=== PATIENT | female | born 1990 | race Caucasian/White ===

== ENCOUNTER 2017-10-12 11:28 | Emergency (ER) | payer OTHER, SELFPAY ==
[2017-10-12 11:42] VITALS: BP 119/68; PULSE 101; RESP 20; TEMP 36.6; O2SAT 98; BMI 29.2
--- NOTE | 2017-10-12 11:55 | HMH.EDUTC ---
[facility] [place] Impression: Requires a booster tetanus, Puncture wound Disposition: Home, Self-Care Condition on Discharge: Good Instructions: DI for Puncture Wound Additional Instructions: Keep area clean and dry Watch area for redness, streaks, swelling. warmth or other signs of infection and if seen go straight to ER REturn if needed Follow up with family doctor Time of Disposition: 12:21 Medical Decision Making - Medical Records Medical records reviewed: Yes: I reviewed the patient's medical records. - Phillip Inquiry Pt receiving controlled substance: No Phillip was queried for this patient: No Vital Signs: 10/12/17 11:42 Temperature 97.9 F Temperature Source Temporal Artery Scan Pulse Rate [Right] 101 H Respiratory Rate 20 Blood Pressure [Right Arm] 119/68 Blood Pressure Mean [Right Arm] 85 Blood Pressure Source [Right Arm] Automatic Cuff Blood Pressure Position [Right Arm] Sitting 02 Sat by Pulse Oximetry 98 Oxygen Delivery Method Room Air [facility] [place] - General Stated complaint: 2 punctures to right foot Time Seen by Provider: 10/12/17 12:00 Mode of Arrival: Ambulatory Source of Information: Patient Limitations: No Limitations Description of Symptoms (Recalled from Triage Doc. by RN): STEPPED ON TREVON YESTERDAY, INJURY BOTTOM OF RIGHT FOOT HEENT Symptoms (Recalled from RN notes): No Resp Symptoms (Recalled from RN notes): No Skin Symptoms (Recalled from RN notes): Yes MS Symptoms (Recalled from RN notes): No Functional Status (Recalled from RN notes): N - History of Present Illness Provider Complaint: Patient state that her boyfriend was taking apart pallets yesterday when she accidently stepped on pallet piece that had a staple sticking up and it punctured into the bottom of her right foot State that she immediately cleaned the wound. State that she doesn't remember when her last tetanus shot was so she came in today to have it looked at and get a tetanus shot - Related Data Allergies Allergy/AdvReac Type Severity Reaction Status Date / Time No Known Allergies Allergy Verified 10/12/17 11:47 - Worker's Comp Is this a Worker's Comp case?: No [facility] History I have reviewed the patient's past medical history: Yes - Social History Smoking Status: Current every day smoker Tobacco Type: cigarettes Alcohol Intake: never - Psychiatric History Expresses thoughts of harming self/others: None Suicide Plan Description: No Plan ROS Obtained: No All systems reviewed & no additional complaints - Allergic/Immunologic Comments: two small puncture areas on bottom of foot Physical Exam - General General appearance: alert, in no apparent distress - ENT ENT exam: Present: normal exam, normal oropharynx, mucous membranes moist, TM's normal bilaterally, normal external ear exam - Respiratory Respiratory exam: Present: normal lung sounds bilaterally. Absent: respiratory distress - Cardiovascular Cardiovascular exam: Present: regular rate, normal rhythm. Absent: JVD - Abdominal Exam Abdominal exam: Present: soft, normal bowel sounds. Absent: distention, tenderness, guarding - Extremities Exam Extremities exam: Present: other (Two small puncture like areas noted on bottom of right foot. no redness, no warmth, no streaks no bruising. unsure of how deep staple went into foot) - Neurological Exam Neurological exam: Present: alert, oriented X3
--- NOTE | 2017-10-12 12:06 | ED_ITS ---
[facility] [place] Clinical Impression: Requires a booster tetanus, Puncture wound Disposition: Home, Self-Care Condition on Discharge: Good Instructions: DI for Puncture Wound Additional Instructions: Keep area clean and dry Watch area for redness, streaks, swelling. warmth or other signs of infection and if seen go straight to ER REturn if needed Follow up with family doctor Time of Disposition: 12:21 Medical Decision Making - Medical Records Medical records reviewed: Yes: I reviewed the patient's medical records. - Phillip Inquiry Pt receiving controlled substance: No Phillip was queried for this patient: No Vital Signs: 10/12/17 11:42 Temperature 97.9 F Temperature Source Temporal Artery Scan Pulse Rate [Right] 101 H Respiratory Rate 20 Blood Pressure [Right Arm] 119/68 Blood Pressure Mean [Right Arm] 85 Blood Pressure Source [Right Arm] Automatic Cuff Blood Pressure Position [Right Arm] Sitting 02 Sat by Pulse Oximetry 98 Oxygen Delivery Method Room Air [facility] [place] - General Stated complaint: 2 punctures to right foot Time Seen by Provider: 10/12/17 12:00 Mode of Arrival: Ambulatory Source of Information: Patient Limitations: No Limitations Description of Symptoms (Recalled from Triage Doc. by RN): STEPPED ON TREVON YESTERDAY, INJURY BOTTOM OF RIGHT FOOT HEENT Symptoms (Recalled from RN notes): No Resp Symptoms (Recalled from RN notes): No Skin Symptoms (Recalled from RN notes): Yes MS Symptoms (Recalled from RN notes): No Functional Status (Recalled from RN notes): N - History of Present Illness Provider Complaint: Patient state that her boyfriend was taking apart pallets yesterday when she accidently stepped on pallet piece that had a staple sticking up and it punctured into the bottom of her right foot State that she immediately cleaned the wound. State that she doesn't remember when her last tetanus shot was so she came in today to have it looked at and get a tetanus shot - Related Data Allergies Allergy/AdvReac Type Severity Reaction Status Date / Time No Known Allergies Allergy Verified 10/12/17 11:47 - Worker's Comp Is this a Worker's Comp case?: No [facility] History I have reviewed the patient's past medical history: Yes - Social History Smoking Status: Current every day smoker Tobacco Type: cigarettes Alcohol Intake: never - Psychiatric History Expresses thoughts of harming self/others: None Suicide Plan Description: No Plan ROS Obtained: No All systems reviewed & no additional complaints - Allergic/Immunologic Comments: two small puncture areas on bottom of foot Physical Exam - General General appearance: alert, in no apparent distress - ENT ENT exam: Present: normal exam, normal oropharynx, mucous membranes moist, TM's normal bilaterally, normal external ear exam - Respiratory Respiratory exam: Present: normal lung sounds bilaterally. Absent: respiratory distress - Cardiovascular Cardiovascular exam: Present: regular rate, normal rhythm. Absent: JVD - Abdominal Exam Abdominal exam: Present: soft, normal bowel sounds. Absent: distention, tenderness, guarding - Extremities Exam Extremities exam: Present: other (Two small puncture like areas noted on bottom of right foot. no redness, no warmth, no streaks no bruising. unsure of how deep staple went into foot) - Neurologi
[2017-10-12 12:14] VITALS: BP 119/68; PULSE 100; RESP 20; TEMP 36.6
== END 2017-10-12 12:39 | disposition home or self-care (01) ==
PROVIDERS: Emergency Provider Nurse Practitioner; Family Provider Internal Medicine Adolescent Medicine
DX: S91.311A Laceration without foreign body, right foot, initial encounter (principal); W26.8XXA Contact with other sharp object(s), not elsewhere classified, initial encounter; Y92.019 Unspecified place in single-family (private) house as the place of occurrence of the external cause; Z23 Encounter for immunization; F17.210 Nicotine dependence, cigarettes, uncomplicated
CPT/HCPCS: 90471; 90715; 99201

== ENCOUNTER → 2018-10-15 10:19 | Outpatient (CLI) | payer OTHER, SELFPAY ==
--- NOTE | 2018-10-15 10:30 | XR_ITS ---
XR foot wt bearing LT 3V HISTORY: ITS.REASON: pain ORDERING PHYSICIAN: Leena Nunez DPM PATIENT AGE: 28 years COMPARISON: None FINDINGS: No fracture or dislocation. No lytic or blastic change. There is normal mineralization.. The joint spaces are well-preserved. No significant degenerative/arthritic changes. No erosive changes evident. There are postsurgical changes of the ankle as described in the ankle report IMPRESSION: Negative, no acute finding
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
== END ==
PROVIDERS: Visit Provider Podiatrist
DX: M19.172 Post-traumatic osteoarthritis, left ankle and foot (principal); M19.171 Post-traumatic osteoarthritis, right ankle and foot; M21.70 Unequal limb length (acquired), unspecified site; M25.572 Pain in left ankle and joints of left foot; G89.29 Other chronic pain; Z87.81 Personal history of (healed) traumatic fracture
CPT/HCPCS: 73610; 73630

== ENCOUNTER → 2020-01-22 15:14 | Outpatient (CLI) | payer OTHER, SELFPAY ==
--- NOTE | 2020-01-22 15:14 | MR_ITS ---
PROCEDURE: MR LUMBAR SPINE WO CON CLINICAL INDICATION: back pain LBP. PAIN AND TINGLING DOWN LT LEG. SYMPTOMS [id number]. NO PRIOR. COMPARISON: No exams were available for comparison TECHNIQUE: Standard multiplanar multiecho sequences are performed without contrast. 3-D MIP and myelographic images are also rendered and reviewed FINDINGS: There is normal alignment. The spinal cord ends at the L1 level. The disc spaces are well preserved. No disc herniation canal stenosis or foraminal stenosis. No significant degenerative change. IMPRESSION: Negative MRI of the lumbar spine Dictated by: Talat Glez MD 01/23/2020 11:03 Electronically signed by Talat Glez MD in [place] 01/23/2020 11:03
== END ==
PROVIDERS: PCP Emergency Medicine; Visit Provider Emergency Medicine
DX: M54.6 Pain in thoracic spine (principal); M54.5 Low back pain
CPT/HCPCS: 72148; 76376

== ENCOUNTER → 2020-06-23 17:16 | Outpatient (CLI) | payer OTHER, SELFPAY ==
[2020-06-23 19:02] LABS: Basophils # 0.1 K/mm3 (0-0.2); Basophils % 0.8 % (0.1-2.0); Eosinophils # 0.6 K/mm3 (0.0-0.4); Eosinophils % 3.7 % (0.1-12.0); Hematocrit 45.4 % (37.0-47.0); Hemoglobin 14.7 g/dL (12.2-16.2); Lymphocytes # 3.9 K/mm3 (0.7-4.5); Mean Corpuscular HGB Conc 32.4 g/dL (31.8-35.4); Mean Corpuscular Hemoglobin 31.1 pg (27.0-31.2); Mean Corpuscular Volume 96.1 fl (81-99); Mean Platelet Volume 9.5 fl (7.4-10.4); Monocytes # 0.7 K/mm3 (0.1-1.0); Monocytes % 4.3 % (1.7-9.3); Neutrophils # 9.8 K/mm3 (1.8-7.8); Neutrophils % 65.3 % (37.0-80.0); Platelet Count 386 K/mm3 (142-424); Red Blood Count 4.73 M/mm3 (4.20-5.40); Red Cell Distribution Width 12.7 % (11.5-17.5)
[2020-06-23 19:08] LABS: MANUAL DIFFERENTIAL MANUAL DIFFERENTIAL (MANUAL DIFF)
[2020-06-23 19:23] LABS: Alanine Aminotransferase 21 U/L (12-78); Albumin Level 4.2 g/dl (3.5-5.0); Albumin/Globulin Ratio 1.6 (1.1-1.8); Alkaline Phosphatase 59 U/L (38-126); Anion Gap 11.1 mEq/L (5-15); Aspartate Amino Transferase 25 U/L (14-36); Bilirubin,Total 0.5 mg/dl (0.2-1.3); Blood Urea Nitrogen 10 mg/dl (7-17); Calcium 9.8 mg/dl (8.4-10.2); Carbon Dioxide 24 mmol/L (22.0-30.0); Chloride 106 mmol/L (98-107); Chol/HDL Ratio 6.5 (1-3.5); Cholesterol 275 mg/dl (140-200); Estimated Glomerular Filt Rate 73 ml/min (>60); GFR (African American) 88 ML/MIN (>60); Globulin 2.7 g/dL (1.3-3.2); Glucose 87 mg/dl (74-100); HDL Cholesterol 42 mg/dl (40-60); Potassium 4.1 mmoL/L (3.5-5.1); Sodium 137 mmol/L (136-145); Total Protein,Serum 6.9 g/dl (6.3-8.2); Triglycerides 217 mg/dl (30-150); VLDL Cholesterol 43 mg/dL (0-40)
[2020-06-23 19:34] LABS: Direct LDL Cholesterol 193.92 mg/dL (100-129)
[2020-06-23 19:40] LABS: 25-OH Vitamin D, Total 25.4 ng/mL (30-100)
[2020-06-23 19:42] LABS: T4 (Thyroxine) 9.8 ug/dl (5.53-11.0)
[2020-06-23 19:52] LABS: Eosinophils % 4 % (0-3); Lymphocytes % 32 % (10-50); Monocytes % 1 % (2-9); Neutrophils % 63 % (42-76); Platelet Estimate Normal; RBC Morphology Normal; Total Cells Counted 100
[2020-06-23 19:55] LABS: Thyroid Stimulating Hormone 1.34 uIU/mL (0.465-4.68)
== END ==
PROVIDERS: Visit Provider Physician Assistant
DX: F32.9 Major depressive disorder, single episode, unspecified (principal); L65.9 Nonscarring hair loss, unspecified; R53.83 Other fatigue; E55.9 Vitamin D deficiency, unspecified
CPT/HCPCS: 80053; 80061; 82306; 84436; 84443; 85007; 85025

== ENCOUNTER 2020-10-02 14:10 | Emergency (ER) | payer OTHER, SELFPAY ==
[2020-10-02 14:27] VITALS: BP 134/80; PULSE 98; RESP 16; TEMP 36.9; O2SAT 97; BMI 32.6
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
[2020-10-02 15:13] VITALS: BP 132/77; PULSE 99; RESP 16; TEMP 36.6
[2020-10-02 19:08] LABS: UTC Strep Screen (Rapid) Negative (Negative)
== END 2020-10-02 15:15 | disposition home or self-care (01) ==
PROVIDERS: Emergency Provider Nurse Practitioner Family; PCP Physician Assistant
DX: R59.0 Localized enlarged lymph nodes (principal); R13.10 Dysphagia, unspecified; F17.210 Nicotine dependence, cigarettes, uncomplicated; Z20.822 Contact with and (suspected) exposure to COVID-19
CPT/HCPCS: 87880; 99202; G0463; U0003

== ENCOUNTER → 2020-10-05 17:35 | Outpatient (CLI) | payer OTHER, SELFPAY ==
[2020-10-05 17:59] LABS: Basophils # 0.1 K/mm3 (0-0.2); Basophils % 0.6 % (0.1-2.0); Eosinophils # 0.5 K/mm3 (0.0-0.4); Eosinophils % 3.6 % (0.1-12.0); Hematocrit 42.2 % (37.0-47.0); Lymphocytes # 4.2 K/mm3 (0.7-4.5); Mean Corpuscular HGB Conc 33.1 g/dL (31.8-35.4); Mean Corpuscular Hemoglobin 30.6 pg (27.0-31.2); Mean Corpuscular Volume 92.5 fl (81-99); Mean Platelet Volume 8.8 fl (7.4-10.4); Monocytes # 0.7 K/mm3 (0.1-1.0); Neutrophils % 61.8 % (37.0-80.0); Platelet Count 333 K/mm3 (142-424); Red Blood Count 4.56 M/mm3 (4.20-5.40); Red Cell Distribution Width 12.9 % (11.5-17.5); White Blood Count 14.6 K/mm3 (4.8-10.8)
[2020-10-05 18:05] LABS: HCG Qualitative, Serum Negative (Negative)
[2020-10-05 18:06] LABS: Alanine Aminotransferase 14 U/L (12-78); Albumin Level 4.1 g/dl (3.5-5.0); Albumin/Globulin Ratio 1.3 (1.1-1.8); Alkaline Phosphatase 63 U/L (38-126); Anion Gap 13.6 mEq/L (5-15); Aspartate Amino Transferase 26 U/L (14-36); Bilirubin,Total 0.3 mg/dl (0.2-1.3); Blood Urea Nitrogen 8 mg/dl (7-17); Carbon Dioxide 23 mmol/L (22.0-30.0); Chloride 107 mmol/L (98-107); Chol/HDL Ratio 5.5 (1-3.5); Cholesterol 226 mg/dl (140-200); Estimated Glomerular Filt Rate 97 ml/min (>60); GFR (African American) 117 ML/MIN (>60); Globulin 3.1 g/dL (1.3-3.2); Glucose 88 mg/dl (74-100); HDL Cholesterol 41 mg/dl (40-60); Potassium 4.6 mmoL/L (3.5-5.1); Sodium 139 mmol/L (136-145); Total Protein,Serum 7.2 g/dl (6.3-8.2); Triglycerides 210 mg/dl (30-150); VLDL Cholesterol 42 mg/dL (0-40)
[2020-10-05 18:17] LABS: Direct LDL Cholesterol 150.08 mg/dL (100-129)
[2020-10-05 18:23] LABS: 25-OH Vitamin D, Total 33.8 ng/mL (30-100); HCG,Quantitative < 2 mIU/ml (0-5.42)
[2020-10-05 18:25] LABS: T4 (Thyroxine) 11.7 ug/dl (5.53-11.0)
[2020-10-05 18:39] LABS: Thyroid Stimulating Hormone 1.33 uIU/mL (0.465-4.68)
== END ==
PROVIDERS: Visit Provider Nurse Practitioner Family
DX: Z00.00 Encounter for general adult medical examination without abnormal findings (principal); Z32.00 Encounter for pregnancy test, result unknown
CPT/HCPCS: 36415; 80053; 80061; 82306; 84436; 84443; 84702; 84703; 85025

== ENCOUNTER → 2020-10-11 09:11 | Outpatient (CLI) | payer OTHER, SELFPAY ==
--- NOTE | 2020-10-11 09:11 | US_ITS ---
PROCEDURE: US THYROID CLINICAL INDICATION: Enlarged Thyroid Trouble swallowing. COMPARISON: No exams were available for comparison FINDINGS: Right lobe: 1.4cm x 4.3cm x 1.8cm Left lobe: 1.7cm x 4.2cm x 1.7cm Isthmus: Unremarkable Additional findings: In the right lobe there is a 3 mm isoechoic nodule in the superior pole TR level 2. Small cyst is present in the lower pole at 2 mm. In the left lobe there is a 2 mm cystic area in the mid polar region. IMPRESSION: No dominant thyroid nodule evident. Please see above for detail Dictated by: Talat Glez MD 10/12/2020 10:37 Talat Glez MD in [place] 10/12/2020 10:37
--- NOTE | 2020-10-11 09:11 | FL_ITS ---
PROCEDURE: FL BARIUM SWALLOW CLINICAL INDICATION: Dysphagia COMPARISON: US US THYROID from 10/11/2020 TECHNIQUE: In the upright position the patient was observed to swallow barium in both the AP and lateral view. The cervical esophagus was examined under fluoroscopy with images obtained. The patient was then placed prone in the right anterior oblique position and was observed to swallow barium with Valsalva technique . FLUOROSCOPY TIME: 38 seconds FINDINGS: There was no evidence of aspiration. There was normal peristalsis. No filling defects or mucosal abnormalities. No masses or strictures. IMPRESSION: Negative barium swallow. Dictated by: Talat Glez MD 10/11/2020 10:07 Talat Glez MD in [place] 10/11/2020 10:07
== END ==
PROVIDERS: PCP Physician Assistant; Visit Provider Nurse Practitioner Family
DX: R13.10 Dysphagia, unspecified (principal); R59.0 Localized enlarged lymph nodes
CPT/HCPCS: 74220; 76536

== ENCOUNTER 2020-10-20 20:17 | Emergency (ER) | payer OTHER, SELFPAY ==
--- NOTE | 2020-10-20 20:09 | ECG_ITS ---
APPROVED REPORT Exam: Resting ECG HR:85 bpm ECG Measurements Heart Rate 85 AXES FL 116 P 7 QRSd 76 QRS 95 QT 360 T 50 QTc 428 Conclusion Normal sinus rhythm Rightward axis Borderline ECG Electronically signed by : Sanju Quinn, 10/21/2020 14:57:16
[2020-10-20 20:17] VITALS: BP 131/85; PULSE 91; RESP 14; TEMP 36.7; O2SAT 97; BMI 33.6
--- NOTE | 2020-10-20 20:23 | XR_ITS ---
PROCEDURE: XR CHEST 2V CLINICAL HISTORY: Cp COMPARISON: CR CXR2V XR chest 2V from 07/29/2018 FINDINGS: The cardiomediastinal silhouette and pulmonary vascularity are within normal limits. The lungs are clear without infiltrates, suspicious nodules, or pleural effusions. No acute bony abnormalities. IMPRESSION: No acute findings. Dictated by: Betsy Alexander 10/21/2020 08:57 Betsy Alexander in [place] 10/21/2020 08:57
[2020-10-20 20:46] LABS: Urine Pregnancy, HCG Qual. Negative (Negative)
[2020-10-20 20:50] LABS: Basophils # 0.2 K/mm3 (0-0.2); Basophils % 1.2 % (0.1-2.0); Eosinophils # 0.5 K/mm3 (0.0-0.4); Eosinophils % 3.4 % (0.1-12.0); Hematocrit 45.3 % (37.0-47.0); Hemoglobin 14.9 g/dL (12.2-16.2); Lymphocytes # 5.3 K/mm3 (0.7-4.5); Lymphocytes % 36.3 % (10-50); Mean Corpuscular Volume 94.2 fl (81-99); Mean Platelet Volume 8.2 fl (7.4-10.4); Monocytes # 0.4 K/mm3 (0.1-1.0); Monocytes % 2.7 % (1.7-9.3); Neutrophils # 8.2 K/mm3 (1.8-7.8); Neutrophils % 56.4 % (37.0-80.0); Platelet Count 345 K/mm3 (142-424); Red Blood Count 4.81 M/mm3 (4.20-5.40); Red Cell Distribution Width 12.9 % (11.5-17.5); White Blood Count 14.6 K/mm3 (4.8-10.8)
[2020-10-20 20:54] LABS: Alanine Aminotransferase 14 U/L (12-78); Albumin Level 4.7 g/dl (3.5-5.0); Albumin/Globulin Ratio 1.6 (1.1-1.8); Alkaline Phosphatase 55 U/L (38-126); Anion Gap 11.8 mEq/L (5-15); Aspartate Amino Transferase 24 U/L (14-36); Bilirubin,Total 0.4 mg/dl (0.2-1.3); Blood Urea Nitrogen 9 mg/dl (7-17); Calcium 9.8 mg/dl (8.4-10.2); Carbon Dioxide 27 mmol/L (22.0-30.0); Chloride 105 mmol/L (98-107); Creatinine Clearance Estimated 129 mL/min (50-200); Estimated Glomerular Filt Rate 83 ml/min (>60); GFR (African American) 101 ML/MIN (>60); Glucose 100 mg/dl (74-100); Potassium 3.8 mmoL/L (3.5-5.1); Sodium 140 mmol/L (136-145); Total Protein,Serum 7.7 g/dl (6.3-8.2)
[2020-10-20 20:56] VITALS: BP 119/72; PULSE 74; RESP 17; O2SAT 99
[2020-10-20 21:00] VITALS: BP 114/76; PULSE 74; RESP 16; O2SAT 99
[2020-10-20 21:00] LABS: C-Reactive Protein 3.3 mg/L (0-4)
--- NOTE | 2020-10-20 21:05 | CT_ITS ---
PROCEDURE: CT ABDOMEN PELVIS W CON CLINICAL INDICATION: pain COMPARISON: CT ABDPELW/O CT ABD PELVIS W/O CONTRAST from 02/03/2016 TECHNIQUE: IV Contrast: 75ML Isovue 370 Oral Contrast None Axial images obtained with sagittal and coronal reformats. All CT scans at the facility use one or more dose reduction, viz: automated exposure control, ma/kV adjustment per patient size (including targeted exams where dose is matched to indication, i.e. head), or iterative reconstruction technique. FINDINGS: LOWER THORAX: Minor bibasal atelectasis is noted. ABDOMEN & PELVIS: The liver, spleen, pancreas, and adrenal glands show no acute finding. The gallbladder is unremarkable. No intra or extrahepatic biliary dilation. 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 No evidence of hydronephrosis or hydroureter is. Bilateral adnexal hypodense lesions are noted, likely represents ovarian cysts. The largest of these on the left measures 3.3 centimeters. The uterus is otherwise unremarkable. No intestinal obstruction or free air. No evidence of appendicitis or diverticulitis. No pelvic mass, abnormal fluid collection, or focal inflammatory change of the pelvis. Postsurgical changes with internal fixation of the right acetabulum noted. Otherwise the visualized osseous structures are unremarkable. IMPRESSION: No acute intra-abdominal abnormality. Dictated by: Betsy Alexander 10/21/2020 08:55 Betsy Alexander in [place] 10/21/2020 08:55
[2020-10-20 21:13] LABS: Procalcitonin 0.042 ng/mL (0.0-2.0)
--- NOTE | 2020-10-20 21:13 | HMH.EDCP ---
ED Disposition Clinical Impression: Pancreatitis Qualifiers: Chronicity: acute Pancreatitis type: unspecified pancreatitis type Acute pancreatitis complication: no infection or necrosis Qualified Code(s): K85.90 - Acute pancreatitis without necrosis or infection, unspecified Disposition: Left Against Medical Advice Condition on Discharge: Good Instructions: DI for Pancreatitis Additional Instructions: see pcp in am for follow up Referrals: Shima Lewis PA [Primary Care Provider] - - Critical Care Critical Care Time: No Attestation: On 10/20/20, the high probability of a clinically significant, sudden or life threatening deterioration of the following system(s) required my full and direct attention, intervention and personal management. The time I documented below is in addition to time spent performing reported procedures but includes the following listed in this critical care notation. Medical Decision Making - Medical Records Medical records reviewed: Yes: I reviewed the patient's medical records. - Phillip Inquiry Pt receiving controlled substance: No Vital Signs: 10/20/20 20:17 10/20/20 20:56 10/20/20 21:00 Temperature 98.1 F Temperature Source Oral Pulse Rate 74 74 Pulse Rate [Right] 91 H Respiratory Rate 14 17 16 Blood Pressure 119/72 114/76 Blood Pressure [Right Arm] 131/85 Blood Pressure Mean 82 87 Blood Pressure Mean [Right Arm] 100 02 Sat by Pulse Oximetry 97 99 99 - Lab Data Lab results reviewed: Yes: I reviewed the patient's lab results. Lab Results 10/20/20 20:30: WBC 14.6 H, RBC 4.81, Hgb 14.9, Hct 45.3, MCV 94.2, MCH 31.0, MCHC 33.0, RDW 12.9, Plt Count 345, MPV 8.2, Neut % (Auto) 56.4, Lymph % (Auto) 36.3, Garza % (Auto) 2.7, Eos % (Auto) 3.4, Baso % (Auto) 1.2, Neut # (Auto) 8.2 H, Lymph # (Auto) 5.3 H, Garza # (Auto) 0.4, Eos # (Auto) 0.5 H, Baso # (Auto) 0.2, ESR 15 10/20/20 20:30: Urine HCG, Qual Negative 10/20/20 20:30: Sodium 140, Potassium 3.8, Chloride 105, Carbon Dioxide 27, Anion Gap 11.8, BUN 9, Creatinine 0.80, Estimated Creat Clear 129, Estimated GFR 83, Est GFR ( Amer) 101, Glucose 100, Calcium 9.8, Total Bilirubin 0.4, AST 24, ALT 14, Alkaline Phosphatase 55, Troponin I < 0.01, C-Reactive Protein 3.3, Total Protein 7.7, Albumin 4.7, Globulin 3.0, Albumin/Globulin Ratio 1.6 10/20/20 20:30: Procalcitonin 0.042 10/20/20 20:30: Amylase 127 H, Lipase 666 H Result diagrams: 10/20/20 20:30 10/20/20 20:30 Orders (Tests/Meds): ED MEDICATIONS Generic Name Dose Route Start Last Admin Trade Name Freq PRN Reason Stop Dose Admin Sodium Chloride 1,000 mls @ 999 mls/hr 10/20/20 20:30 10/20/20 20:27 Sod Chlor 0.9% 1000ml Bag IV 10/20/20 21:30 999 mls/hr .Q1H1M MARTIN Administration Sodium Chloride 8 ml 10/20/20 20:37 Sodium Chloride 0.9% 10ml Vial IV 11/19/20 20:36 NEEDED PRN dilute pepcid Discontinued Medications Generic Name Dose Route Start Last Admin Trade Name Freq PRN Reason Stop Dose Admin Aspirin 324 mg 10/20/20 20:25 10/20/20 20:27 Aspirin 81mg Chewable Tablet PO 10/20/20 20:26 324 mg ONCE ONE Administration Famotidine 20 mg 10/20/20 20:37 10/20/20 20:52 Famotidine 20mg/2ml Vial IV 10/20/20 20:38 20 mg ONCE ONE Administration Iopamidol 75 ml 10/20/20 21:42 10/20/20 21:43 Iopamidol-370 (76%);100ml Bottle IV 10/20/20 21:43 75 ml ONCE ONE Administration Ketorolac Tromethamine 30 mg 10/20/20 20:37 10/20/20 20:52 Ketorolac 30mg/Ml Vial IV 10/20/20 20:38 30 mg ONCE ONE Administration Metoclopramide HCl 10 mg 10/20/20 20:37 10/20/20 20:52 Metoclopramide Hcl 10mg/2ml Vial IVP 10/20/20 20:38 10 mg ONCE ONE Administration Sodium Chloride 10 ml 10/20/20 21:42 10/20/20 21:43 Sodium Chloride 0.9% 10ml Syr (Rad Only) IV 10/20/20 21:43 10 ml ONCE ONE Administration ORDERS Category Date Time Status CT abdomen pelvis w con Stat Cat Scan 10/20/
[2020-10-20 21:16] LABS: Amylase 127 U/L (30-110)
[2020-10-20 21:21] LABS: Troponin I < 0.01 ng/ml (0.00-0.034)
[2020-10-20 21:23] LABS: Lipase 666 U/L (23-300)
[2020-10-20 21:24] LABS: Erythrocyte Sedimentation Rate 15 mm/hr (0-20)
[2020-10-20 21:55] LABS: Microscopic, Urine URINE MICROSCOPIC (MICROSCOPIC)
[2020-10-20 21:56] LABS: Appearance,Urine CLEAR (Clear); Bilirubin,Urine Negative (Negative); Blood, Urine TRACE-I (Negative); Color,Urine YELLOW (Yellow); Glucose,Urine (UA) Negative (Negative); Ketones,Urine Negative (Negative); Leukocyte Esterase,Urine Negative (Negative); Nitrate,Urine Negative (Negative); PH,Urine 5.5 (5.0-8.5); Protein,Urine Negative (Negative); Specific Gravity, Urine >= 1.030 (1.005-1.030); Urobilinogen,Urine 0.2 EU/dl (0.2)
[2020-10-20 21:59] VITALS: BP 114/76; PULSE 75; RESP 14; TEMP 36.7; O2SAT 97
[2020-10-20 21:59] LABS: Lactic Acid 0.7 mmol/L (0.7-2.1)
[2020-10-20 22:04] LABS: Bacteria,Urine 1+ /lpf; Mucus,Urine 1+ /lpf
== END 2020-10-20 22:01 | disposition left against medical advice (07) ==
PROVIDERS: Emergency Provider Emergency Medicine; PCP Physician Assistant
DX: K85.90 Acute pancreatitis without necrosis or infection, unspecified (principal); U07.1 COVID-19; F41.9 Anxiety disorder, unspecified; E78.5 Hyperlipidemia, unspecified; F17.210 Nicotine dependence, cigarettes, uncomplicated; Z79.899 Other long term (current) drug therapy
CPT/HCPCS: 71046; 74177; 80053; 81001; 81025; 82150; 83605; 83690; 84145; 84484; 85025; 85651; 86140; 87040; 87077; 87186; 93005; 96375; 99283; Q9967; U0003

== ENCOUNTER → 2020-11-01 08:14 | Outpatient (CLI) | payer OTHER, SELFPAY ==
--- NOTE | 2020-11-01 08:14 | US_ITS ---
PROCEDURE: US GALLBLADDER CLINICAL INDICATION: upper abd/chest pain COMPARISON: No exams were available for comparison FINDINGS: Pancreas: Unremarkable/Not well seen Liver: Unremarkable. There is appropriate direction of blood flow within a non dilated portal vein. Right kidney: Unremarkable appearing. No hydronephrosis. Gallbladder: No stones are evident. There is no gallbladder wall thickening. Common duct is normal in diameter. IMPRESSION: Negative gallbladder ultrasound. No stones evident. Dictated by: Talat Glez MD 11/01/2020 13:24 Taalt Glez MD in [place] 11/01/2020 13:24
== END ==
PROVIDERS: PCP Physician Assistant; Visit Provider Physician Assistant
DX: R10.10 Upper abdominal pain, unspecified (principal); K85.90 Acute pancreatitis without necrosis or infection, unspecified
CPT/HCPCS: 76705

== ENCOUNTER → 2020-11-10 11:21 | Outpatient (CLI) | payer OTHER, SELFPAY ==
[2020-11-11 08:16] LABS: Thyroid Peroxidase Antibodies 10 IU/mL (0-34)
[2020-11-11 15:18] LABS: Triiodothyronine (T3) Free 3.5 pg/mL (2.0-4.4)
[2020-11-12 11:06] LABS: Thyroid Stimulating Immunoglob <0.10 IU/L (0.00-0.55)
== END ==
PROVIDERS: Visit Provider Physician Assistant
DX: E01.0 Iodine-deficiency related diffuse (endemic) goiter (principal)
CPT/HCPCS: 36415; 84445; 84481; 86376

== ENCOUNTER → 2020-11-12 09:28 | Outpatient (CLI) | payer OTHER, SELFPAY ==
--- NOTE | 2020-11-12 09:29 | CA_ITS ---
APPROVED REPORT EXAM: Comprehensive 2D, Doppler, and color-flow Echocardiogram Grinding Machine Operator: Lola Joseph CRT Ht: 5 ft 1 in Wt: 181lbs BSA: 1.81 BP: 130/86 mmHg Indications: Chest Pain, Shortness of Breath, Peripheral Edema, Hyperlipidemia, Smoker 2D Dimensions LVOT 2.05 cm (M/F) 1.5-2.5 LA Volume 32.60 mL LA Volume Index 18.00 mL/m2 (M/F) 16-34 M-Mode Dimensions RVDd 1.90 cm (0.9-2.6) LA Diam 3.04 cm (1.9-4.0) LVDd 4.93 cm (3.5-5.7) Ao Diam 3.47 cm (2.0-3.7) LVDs 2.78 cm (3.5-5.7) IVSd 0.90 cm (0.6-1.1) PWd 0.50 cm (0.6-1.1) EF (Teich) 74.70% FS 43.60% EDV (Teich) 114.40 mL TAPSE 2.01 (<1.7) ESV (Teich) 29.00 mL LV Diastology E Decel Time 200.00 (160-240 msec) E/A Ratio 1.28 MED E' 11.30 (< 7 cm/sec) MED A' 10.70 cm/s E'/MED E' Ratio 8.21 (>14) LAT E' 15.60 (<10 cm/sec) LAT A' 14.20 cm/s E/LAT E' Ratio 5.95 (>14) Aortic Valve AO Peak GR. 6.40 mmHg Mitral Valve MV E Max Liam. 93.00 (40-130 cm/s) MV A Velocity 73.00 (40-130 cm/s) E/A Ratio 1.28 MV Decel. Time 200.00 (160-240 ms) MV PHT 59.00 ms Pulmonary Valve PV Peak Velocity 62.00 (50-150 cm/s) Tricuspid Valve TR P. Velocity 190.00 cm/s RAP Estimate 10.00 mmHg RVSP 24.40 mmHg Left Ventricle Normal left ventricular size, preserved left ventricular systolic function, visually estimated ejection fraction 55% with no regional wall motion abnormality, diastolic parameters are within normal range. Right Ventricle Right atrium and right ventricle is normal size and contractility. Aortic Valve Aortic valve is grossly normal, there is no aortic stenosis or aortic insufficiency. Mitral Valve Mitral valve grossly normal, there is trace mitral regurgitation. Tricuspid Valve Tricuspid grossly normal, there is trace tricuspid regurgitation, tricuspid regurgitation jet velocity is inadequate for calculation of the right ventricular systolic pressure. Pulmonic Valve Pulmonic valve is not well visualized. Great Vessels Aortic root is normal size. Inferior vena cava is normal size with normal inspiratory collapse. Pericardium No significant pericardial effusion noted. Conclusion 1. Normal left ventricular size, preserved left ventricular systolic function, visually estimated ejection fraction 55% with no regional wall motion abnormality, diastolic parameters are within normal range. 2. Trace mitral and tricuspid regurgitation. 3. No significant pericardial effusion noted. Electronically signed by : Rashid Coe, 11/12/2020 13:07:00
== END ==
PROVIDERS: PCP Physician Assistant; Visit Provider Internal Medicine Cardiovascular Disease
DX: R07.9 Chest pain, unspecified (principal); R06.00 Dyspnea, unspecified; R42 Dizziness and giddiness; R94.31 Abnormal electrocardiogram [ECG] [EKG]; K30 Functional dyspepsia; R40.0 Somnolence; R53.83 Other fatigue
CPT/HCPCS: 93306

== ENCOUNTER 2021-01-07 18:33 | Emergency (ER) | payer OTHER, SELFPAY ==
[2021-01-07 19:02] VITALS: BP 104/72; PULSE 111; RESP 24; TEMP 37.7; O2SAT 99; BMI 36.3
[2021-01-07 19:09] VITALS: BMI 36.3
--- NOTE | 2021-01-07 19:10 | CT_ITS ---
PROCEDURE INFORMATION: Exam: CT Abdomen And Pelvis With Contrast Exam date and time: 01/07/2021 7:10 PM Age: 30 years old Clinical indication: Abdominal pain; Acute; Patient HX: Patient had hsg procedure yesterday---. Pain at top of pelvis; Additional info: Abd pain TECHNIQUE: Imaging protocol: Computed tomography of the abdomen and pelvis with contrast. Radiation optimization: All CT scans at this facility use at least one of these dose optimization techniques: automated exposure control; mA and/or kV adjustment per patient size (includes targeted exams where dose is matched to clinical indication); or iterative reconstruction. Contrast material: ISOVUE; Contrast volume: 75 ml; Contrast route: IV; COMPARISON: CT ABDOMEN PELVIS W CON 10/20/2020 9:22 PM FINDINGS: Liver: Normal. Gallbladder and bile ducts: Normal. Pancreas: Normal. Spleen: Normal. Adrenal glands: Normal. No mass. Kidneys and ureters: Normal. Stomach and bowel: Normal. Appendix: No evidence of appendicitis. Intraperitoneal space: Small amount of pelvic free fluid, likely physiologic. Vasculature: Unremarkable. No abdominal aortic aneurysm. Lymph nodes: Unremarkable. No enlarged lymph nodes. Urinary bladder: Unremarkable as visualized. Reproductive: Radiodense material within the fallopian tubes bilaterally, likely secondary to recent hysterosalpingogram. Bones/joints: No acute abnormality. Soft tissues: Surgical changes of prior right ilium and acetabulum repair. Small fat containing umbilical hernia. IMPRESSION: No acute abdominal or pelvic abnormality.
[2021-01-07 19:22] LABS: Basophils # 0.1 K/mm3 (0-0.2); Basophils % 0.5 % (0.1-2.0); Eosinophils # 0.5 K/mm3 (0.0-0.4); Eosinophils % 1.9 % (0.1-12.0); Hematocrit 39.6 % (37.0-47.0); Hemoglobin 13.2 g/dL (12.2-16.2); Lymphocytes # 4.5 K/mm3 (0.7-4.5); Mean Corpuscular HGB Conc 33.4 g/dL (31.8-35.4); Mean Corpuscular Hemoglobin 30.8 pg (27.0-31.2); Mean Corpuscular Volume 92.2 fl (81-99); Monocytes % 4.4 % (1.7-9.3); Neutrophils # 17.6 K/mm3 (1.8-7.8); Neutrophils % 74.2 % (37.0-80.0); Platelet Count 386 K/mm3 (142-424); Red Blood Count 4.29 M/mm3 (4.20-5.40); Red Cell Distribution Width 12.4 % (11.5-17.5); White Blood Count 23.8 K/mm3 (4.8-10.8)
[2021-01-07 19:23] LABS: Alanine Aminotransferase 18 U/L (12-78); Albumin Level 4.2 g/dl (3.5-5.0); Albumin/Globulin Ratio 1.5 (1.1-1.8); Alkaline Phosphatase 64 U/L (38-126); Anion Gap 12.1 mEq/L (5-15); Aspartate Amino Transferase 26 U/L (14-36); Bilirubin,Total 0.5 mg/dl (0.2-1.3); Blood Urea Nitrogen 6 mg/dl (7-17); Calcium 9.3 mg/dl (8.4-10.2); Carbon Dioxide 24 mmol/L (22.0-30.0); Chloride 106 mmol/L (98-107); Creatinine Clearance Estimated 163 mL/min (50-200); Estimated Glomerular Filt Rate 83 ml/min (>60); GFR (African American) 101 ML/MIN (>60); Globulin 2.8 g/dL (1.3-3.2); Glucose 91 mg/dl (74-100); Potassium 3.1 mmoL/L (3.5-5.1); Sodium 139 mmol/L (136-145)
[2021-01-07 19:28] LABS: C-Reactive Protein 23.7 mg/L (0-4)
[2021-01-07 19:30] VITALS: BP 95/57; PULSE 92; O2SAT 99
[2021-01-07 19:31] LABS: MANUAL DIFFERENTIAL MANUAL DIFFERENTIAL (MANUAL DIFF)
[2021-01-07 19:48] LABS: Eosinophils % 1 % (0-3); Lymphocytes % 22 % (10-50); Monocytes % 5 % (2-9); Neutrophils % 71 % (42-76); Total Cells Counted 100
[2021-01-07 19:49] LABS: Platelet Estimate Normal; RBC Morphology Normal
[2021-01-07 19:51] LABS: HCG Qualitative, Serum Negative (Negative)
[2021-01-07 20:08] LABS: Amylase 62 U/L (30-110); Lipase 50 U/L (23-300)
[2021-01-07 20:10] LABS: Lactic Acid 1.2 mmol/L (0.7-2.1)
[2021-01-07 20:26] LABS: Erythrocyte Sedimentation Rate 25 mm/hr (0-20)
[2021-01-07 20:30] VITALS: BP 109/65; PULSE 100; O2SAT 99
[2021-01-07 20:37] LABS: Microscopic, Urine URINE MICROSCOPIC (MICROSCOPIC)
[2021-01-07 20:43] LABS: Appearance,Urine SL CLOUDY (Clear); Bilirubin,Urine Negative (Negative); Blood, Urine 3+ (Negative); Color,Urine YELLOW (Yellow); Glucose,Urine (UA) Negative (Negative); Ketones,Urine Negative (Negative); Leukocyte Esterase,Urine 1+ (Negative); Nitrate,Urine POSITIVE (Negative); PH,Urine 5.5 (5.0-8.5); Protein,Urine Negative (Negative); Specific Gravity, Urine 1.015 (1.005-1.030); Urobilinogen,Urine 0.2 EU/dl (0.2)
[2021-01-07 20:50] LABS: Bacteria,Urine 2+ /lpf; WBC,Urine 20-50 #/hpf (0-3)
[2021-01-07 21:18] VITALS: BP 102/63; PULSE 100; O2SAT 97
--- NOTE | 2021-01-07 21:40 | HMH.EDNVD ---
ED Disposition Clinical Impression: Pelvic pain, SIRS (systemic inflammatory response syndrome) UTI (urinary tract infection) Qualifiers: Urinary tract infection type: site unspecified Hematuria presence: without hematuria Qualified Code(s): N39.0 - Urinary tract infection, site not specified Disposition: Home, Self-Care Condition on Discharge: Good Instructions: DI for Urinary Tract Infection (UTI) Additional Instructions: use meds and see pcp for follow up Prescriptions: levoFLOXacin [Levaquin 500mg tab] 500 mg PO DAILY #7 tab Prescription Printed Referrals: Sunday Jules MD [Primary Care Provider] - - Critical Care Critical Care Time: No Attestation: On 01/07/21, the high probability of a clinically significant, sudden or life threatening deterioration of the following system(s) required my full and direct attention, intervention and personal management. The time I documented below is in addition to time spent performing reported procedures but includes the following listed in this critical care notation. Medical Decision Making - Medical Records Medical records reviewed: Yes: I reviewed the patient's medical records. - Phillpi Inquiry Pt receiving controlled substance: No Vital Signs: 01/07/21 19:02 01/07/21 19:30 01/07/21 20:30 Temperature 99.9 F H Temperature Source Oral Pulse Rate 92 H 100 H Pulse Rate [Right] 111 H Respiratory Rate 24 Blood Pressure 95/57 L 109/65 L Blood Pressure [Right Arm] 104/72 L Blood Pressure Mean 69 75 Blood Pressure Mean [Right Arm] 82 Blood Pressure Source [Right Arm] Automatic Cuff Blood Pressure Position [Right Arm] Sitting 02 Sat by Pulse Oximetry 99 99 99 01/07/21 21:18 Temperature Temperature Source Pulse Rate 100 H Pulse Rate [Right] Respiratory Rate Blood Pressure 102/63 L Blood Pressure [Right Arm] Blood Pressure Mean 72 Blood Pressure Mean [Right Arm] Blood Pressure Source [Right Arm] Blood Pressure Position [Right Arm] 02 Sat by Pulse Oximetry 97 - Lab Data Lab results reviewed: Yes: I reviewed the patient's lab results. Lab Results 01/07/21 18:45: WBC 23.8 H*, RBC 4.29, Hgb 13.2, Hct 39.6, MCV 92.2, MCH 30.8, MCHC 33.4, RDW 12.4, Plt Count 386, MPV 8.0, Neut % (Auto) 74.2, Lymph % (Auto) 19.0, [place] % (Auto) 4.4, Eos % (Auto) 1.9, Baso % (Auto) 0.5, Neut # (Auto) 17.6 H, Lymph # (Auto) 4.5, [place] # (Auto) 1.0, Eos # (Auto) 0.5 H, Baso # (Auto) 0.1, Total Counted 100, Neutrophils % (Manual) 71, Lymphocytes % (Manual) 22, Atypical Lymphs % 1.0, Monocytes % (Manual) 5, Eosinophils % (Manual) 1, Platelet Estimate Normal, RBC Morphology Normal, ESR 25 H 01/07/21 18:45: Sodium 139, Potassium 3.1 L, Chloride 106, Carbon Dioxide 24, Anion Gap 12.1, BUN 6 L, Creatinine 0.80, Estimated Creat Clear 163, Estimated GFR 83, Est GFR ( Amer) 101, Glucose 91, Calcium 9.3, Total Bilirubin 0.5, AST 26, ALT 18, Alkaline Phosphatase 64, C-Reactive Protein 23.7 H, Total Protein 7.0, Albumin 4.2, Globulin 2.8, Albumin/Globulin Ratio 1.5, Procalcitonin 0.050 01/07/21 18:45: Serum HCG, Qual Negative 01/07/21 18:45: Amylase 62, Lipase 50 01/07/21 19:50: Lactate 1.2 01/07/21 20:33: Urine Color Yellow, Urine Appearance Sl cloudy, Urine pH 5.5, Ur Specific [place] 1.015, Urine Protein Negative, Urine Glucose (UA) Negative, Urine Ketones Negative, Urine Blood 3+, Urine Nitrate Positive, Urine Bilirubin Negative, Urine Urobilinogen 0.2, Ur Leukocyte Esterase 1+ A, Urine RBC 5-10, Urine WBC 20-50, Ur Squamous Epith Cells 3-5, Urine Bacteria 2+ Result diagrams: 01/07/21 18:45 01/07/21 18:45 Orders (Tests/Meds): ED MEDICATIONS Generic Name Dose Route Start Last Admin Trade Name Freq PRN Reason Stop Dose Admin Sodium Chloride 1,000 mls @ 999 mls/hr 01/07/21 20:00 01/07/21 19:56 Sod Chlor 0.9% 1000ml Bag IV 01/07/21 21:00 999 mls/hr .Q1H1M MARTIN Administration Ceftriaxone Sodium 1 gm/ 50 mls @ 100 mls/hr 01/07/21 21:45
--- NOTE | 2021-01-07 22:07 | PC.NURSE ---
Dhara on phone with Dr Estrada OB @ this time
[2021-01-07 22:45] VITALS: BP 110/67; PULSE 89; RESP 16; TEMP 37.1; O2SAT 97
== END 2021-01-07 22:46 | disposition home or self-care (01) ==
PROVIDERS: Emergency Medicine; Emergency Provider Emergency Medicine; PCP Emergency Medicine
DX: N30.00 Acute cystitis without hematuria (principal); R65.10 Systemic inflammatory response syndrome (SIRS) of non-infectious origin without acute organ dysfunction; E78.5 Hyperlipidemia, unspecified; Z79.899 Other long term (current) drug therapy
CPT/HCPCS: 74177; 80053; 81001; 82150; 83605; 83690; 84145; 84703; 85007; 85025; 85651; 86140; 87040; 87086; 87088; 87186; 96365; 96366; 96375; 99283; J2405; Q9967

== ENCOUNTER → 2021-04-26 19:16 | Outpatient (CLI) | payer OTHER, SELFPAY | PROVIDERS: Visit Provider Nurse Practitioner Family | DX: Z20.822 Contact with and (suspected) exposure to COVID-19 (principal) | CPT/HCPCS: C9803; U0003; U0005 ==

== ENCOUNTER 2021-05-01 16:34 | Emergency (ER) | payer OTHER, SELFPAY ==
[2021-05-01 16:47] VITALS: BP 128/79; PULSE 89; RESP 15; TEMP 36.6; O2SAT 98; BMI 35.1
[2021-05-01 16:59] LABS: Apearance,Urine Cloudy (Clear); Color,Urine Dark Yellow (Yellow); Glucose,Urine (UA) Negative (Negative); Protein,Urine Negative (Negative); Specific Gravity, Urine 1.025 (1.005-1.030)
[2021-05-01 17:00] LABS: Bilirubin,Urine Negative (Negative); Blood, Urine 1+ (Negative); Ketones,Urine Negative (Negative); UTC Leukocyte Esterase,Urine Trace (Negative); UTC Nitrate,Urine Positive (Negative); Urobilinogen,Urine 0.2 EU/dl (0.2)
--- NOTE | 2021-05-01 17:05 | HMH.EDUTC ---
[facility] Disposition Clinical Impression: UTI (urinary tract infection) Qualifiers: Urinary tract infection type: site unspecified Hematuria presence: with hematuria Qualified Code(s): N39.0 - Urinary tract infection, site not specified Disposition: Home, Self-Care Condition on Discharge: Good Instructions: Urinary Tract Infection, DI for Urinary Tract Infection (UTI) Additional Instructions: Drink plenty of fluids. Take tylenol or ibuprofen for pain or fever. Take the medications as directed. Follow up with your regular doctor. GO TO THE ER FOR ANY WORSENING SYMPTOMS Throw your tooth brush away and get a new one. The pyridium will make your urine turn orange, this is an expected side effect. It will stain your clothes if it comes into contact with them. Prescriptions: Sulfamethoxazole/Trimethoprim [Bactrim DS tablet] 1 each PO BID 7 Days #14 tab Transmission Status: Received by [id number] Phenazopyridine HCl [Pyridium 200mg Tablet] 200 pow PO TID #6 tab Transmission Status: Received by [id number] Referrals: Shima Lewis PA [Primary Care Provider] - Forms: Work/School Release Time of Disposition: 17:11 Medical Decision Making - Medical Records Medical records reviewed: No: I reviewed the patient's medical records. - Phillip Inquiry Pt receiving controlled substance: No Vital Signs: 05/01/21 16:47 05/01/21 17:14 Temperature 97.8 F 97.8 F Temperature Source Oral Pulse Rate 89 Pulse Rate [Left] 89 Respiratory Rate 15 19 Blood Pressure 128/79 Blood Pressure [Right Arm] 128/79 Blood Pressure Mean [Right Arm] 95 02 Sat by Pulse Oximetry 98 - Lab Data Lab results reviewed: Yes: I reviewed the patient's lab results. Lab Results 05/01/21 16:58: Urine Color Dark yellow, Urine Appearance Cloudy, Urine pH 6.0, Ur Specific [place] 1.025, Urine Protein Negative, Urine Glucose (UA) Negative, Urine Ketones Negative, Urine Blood 1+, Urine Nitrate Positive A, Urine Bilirubin Negative, Urine Urobilinogen 0.2, Ur Leukocyte Esterase Trace Orders (Tests/Meds): ORDERS Category Date Time Status Urine Culture Stat Micro 05/01/21 16:47 Received [facility] HPI - General Stated complaint: ear and blader infection Time Seen by Provider: 05/01/21 17:05 Mode of Arrival: Ambulatory Source of Information: Patient Limitations: No Limitations Description of Symptoms (Recalled from Triage Doc. by RN): pt c/o burning with urination x1 week. pt c/o ear pain x2 days HEENT Symptoms (Recalled from RN notes): Yes (ear pain) Resp Symptoms (Recalled from RN notes): No Skin Symptoms (Recalled from RN notes): No MS Symptoms (Recalled from RN notes): No Functional Status (Recalled from RN notes): na - History of Present Illness Provider Complaint: She states that for the past 2 days she has had burning with urination and low back pain. She was running a fever around 5 days ago, but she thinks that it was something differnt, because that went away. She does occasionally get uti's. - Related Data Previous Rx's Medication Instructions Recorded Phenazopyridine HCl [Pyridium 200 pow PO TID #6 tab 05/01/21 200mg Tablet] Sulfamethoxazole/Trimethoprim 1 each PO BID 7 Days #14 tab 05/01/21 [Bactrim DS tablet] Allergies Allergy/AdvReac Type Severity Reaction Status Date / Time No Known Allergies Allergy Verified 04/26/21 17:43 - Worker's Comp Is this a Worker's Comp case?: No [facility] History - Hepatitis A Screen Drug use history?: No High risk sexual behaviors?: No History of sexually transmitted infection?: No Currently employed?: No Childcare worker?: No Do you have indoor plumbing?: Yes Do you have electricity?: Yes Attestation statement:: This patient has been screened for Hepatitis A risk factors. I have reviewed the patient's past medical history: Yes Medical History: Reports:: Hyperlipidemia Denies:: Cancer, Diabetes Mellitus
[2021-05-01 17:14] VITALS: BP 128/79; PULSE 89; RESP 19; TEMP 36.6
== END 2021-05-01 17:16 | disposition home or self-care (01) ==
PROVIDERS: Emergency Provider Nurse Practitioner Family; PCP Physician Assistant
DX: N39.0 Urinary tract infection, site not specified (principal)
CPT/HCPCS: 81003; 87086; 87088; 87186; 99202; G0463

== ENCOUNTER → 2021-07-15 08:05 | Outpatient (CLI) | payer OTHER, SELFPAY ==
--- NOTE | 2021-07-15 08:06 | MM_ITS ---
PROCEDURE INFORMATION: Exam: MG Bilateral Screening 3D Mammography Exam date and time: 07/15/2021 8:06 AM Age: 31 years old Clinical indication: Screening.Positive family history of breast cancer: Grandmother. Mammogram prior to breast reduction TECHNIQUE: Imaging protocol: Bilateral screening tomosynthesis and 2D mammography including computer-aided detection (CAD) when performed. COMPARISON: No relevant prior studies available. FINDINGS: MAMMOGRAPHY: Breast composition: The breast tissue is composed of scattered areas of fibroglandular density. Mass: None. Architectural distortion: None. Calcifications: No suspicious calcifications. Asymmetric density: None. Skin thickening: None. Axillary adenopathy: None. IMPRESSION: No mammographic evidence of malignancy. Annual bilateral mammographic screening is recommended to commence at the age of 40 unless otherwise clinically indicated. ASSESSMENT: BI-RADS Category 1: Negative
== END ==
PROVIDERS: PCP Physician Assistant; Visit Provider Physician Assistant
DX: Z12.31 Encounter for screening mammogram for malignant neoplasm of breast (principal)
CPT/HCPCS: 77063; 77067

== ENCOUNTER → 2021-07-20 17:29 | Outpatient (CLI) | payer OTHER, SELFPAY ==
[2021-07-20 20:30] LABS: Benzodiazepines Screen,Urine Negative ng/ml (<200)
[2021-07-20 20:31] LABS: Amphetamine/Metha Screen,Urine Negative ng/ml (<1000); Barbiturates Screen,Urine Negative ng/ml (<200)
[2021-07-20 20:32] LABS: Cannabinoid Screen,Urine Negative ng/ml (<50)
[2021-07-20 20:33] LABS: Cocaine Screen,Urine Negative ng/ml (<300); Methadone Screen,Urine Negative ng/ml (<300)
[2021-07-20 20:34] LABS: Opiate Screen,Urine Negative ng/ml (<300); Phencyclidine Screen,Urine Negative ng/ml (<25)
== END ==
PROVIDERS: Visit Provider Nurse Practitioner Family
DX: M54.9 Dorsalgia, unspecified (principal)
CPT/HCPCS: 80305

== ENCOUNTER 2021-07-24 15:57 | Emergency (ER) | payer OTHER, SELFPAY ==
[2021-07-24 18:22] VITALS: BP 123/83; PULSE 112; RESP 16; TEMP 37; O2SAT 100; BMI 35.1
[2021-07-24 18:27] LABS: Apearance,Urine Turbid (Clear); Bilirubin,Urine Negative (Negative); Blood, Urine 4+ (Negative); Color,Urine Dark Yellow (Yellow); Glucose,Urine (UA) Negative (Negative); Ketones,Urine Negative (Negative); Protein,Urine 2+ (Negative); Specific Gravity, Urine 1.025 (1.005-1.030); UTC Leukocyte Esterase,Urine 1+ (Negative); UTC Nitrate,Urine Positive (Negative); Urobilinogen,Urine 0.2 EU/dl (0.2)
[2021-07-24 18:37] VITALS: BP 123/83; PULSE 112; RESP 16; TEMP 37
--- NOTE | 2021-07-24 18:53 | HMH.EDUTC ---
[facility] [place] Clinical Impression: UTI (urinary tract infection) Qualifiers: Urinary tract infection type: site unspecified Hematuria presence: with hematuria Qualified Code(s): N39.0 - Urinary tract infection, site not specified Disposition: Home, Self-Care Condition on Discharge: Good Instructions: DI for Urinary Tract Infection (UTI) Additional Instructions: Drink plenty of fluids. Take tylenol or ibuprofen for pain or fever. Take the medications as directed. Follow up with your regular doctor. GO TO THE ER FOR ANY WORSENING SYMPTOMS The pyridium will make your urine turn orange, this is an expected side effect. It will stain your clothes if it comes into contact with them. Prescriptions: Ondansetron [Zofran 4mg ODT] 4 mg PO Q8HP PRN #20 tab PRN Reason: Nausea Transmission Status: [facility] Ciprofloxacin HCl [Cipro 500mg Tab] 500 mg PO BID 7 Days #14 tab Transmission Status: [id number] Phenazopyridine HCl [Pyridium 200mg Tablet] 200 pow PO TID #6 tab Transmission Status: [facility] Referrals: Shima Lewis PA [Primary Care Provider] - Forms: Work/School Release Time of Disposition: 19:13 Medical Decision Making - Medical Records Medical records reviewed: No: I reviewed the patient's medical records. - Phillip Inquiry Pt receiving controlled substance: No Vital Signs: 07/24/21 18:22 07/24/21 18:37 Temperature 98.6 F 98.6 F Temperature Source Oral Pulse Rate 112 H Pulse Rate [Left] 112 H Respiratory Rate 16 16 Blood Pressure 123/83 Blood Pressure [Right Arm] 123/83 Blood Pressure Mean [Right Arm] 96 02 Sat by Pulse Oximetry 100 - Lab Data Lab results reviewed: Yes: I reviewed the patient's lab results. Lab Results 07/24/21 18:22: Urine Color Dark yellow, Urine Appearance Turbid, Urine pH 6.0, Ur Specific [place] 1.025, Urine Protein 2+, Urine Glucose (UA) Negative, Urine Ketones Negative, Urine Blood 4+, Urine Nitrate Positive A, Urine Bilirubin Negative, Urine Urobilinogen 0.2, Ur Leukocyte Esterase 1+ A Orders (Tests/Meds): ED MEDICATIONS Discontinued Medications Generic Name Dose Route Start Last Admin Trade Name Nano PRN Reason Stop Dose Admin Levofloxacin 500 mg 07/24/21 19:21 07/24/21 19:26 Levofloxacin 500mg Tab PO 07/24/21 19:22 500 mg ONCE ONE Administration Phenazopyridine HCl 200 mg 07/24/21 19:23 07/24/21 19:26 Phenazopyridine 200mg Tablet PO 07/24/21 19:24 200 mg ONCE ONE Administration ORDERS Category Date Time Status Urine Culture Stat Micro 07/24/21 18:07 Received [facility] [place] - General Stated complaint: Bladder infection Time Seen by Provider: 07/24/21 18:53 Mode of Arrival: Ambulatory Source of Information: Patient Limitations: No Limitations Description of Symptoms (Recalled from Triage Doc. by RN): pt c/o a fever, foul smelling urine, lower abd pain and flank pain. x2 days. pt believes she has a UTI HEENT Symptoms (Recalled from RN notes): No Resp Symptoms (Recalled from RN notes): No Skin Symptoms (Recalled from RN notes): No MS Symptoms (Recalled from RN notes): No Functional Status (Recalled from RN notes): wnl - History of Present Illness Provider Complaint: She has been having dysuria and low back pain for the past 3 days. She gets utis at times. - Related Data Previous Rx's Medication Instructions Recorded naproxen 375 mg tablet 375 mg PO BID PRN #30 tab 07/20/21 phentermine 37.5 mg tablet 37.5 mg PO DAILY #30 tab 07/20/21 Ciprofloxacin HCl [Cipro 500mg 500 mg PO BID 7 Days #14 tab 07/24/21 Tab] Ondansetron [Zofran 4mg ODT] 4 mg PO Q8HP PRN #20 tab 07/24/21 Phenazopyridine HCl [Pyridium 200 pow PO TID #6 tab 07/24/21 200mg Tablet] Allergies Allergy/AdvReac Type Severity Reaction Status Date / Time No Known Allergies Allergy Verified 07/20/21 13:59 - Wo
== END 2021-07-24 19:29 | disposition home or self-care (01) ==
PROVIDERS: Emergency Provider Nurse Practitioner Family; PCP Physician Assistant
DX: N30.00 Acute cystitis without hematuria (principal); E78.5 Hyperlipidemia, unspecified
CPT/HCPCS: 81003; 87086; 87088; 87186; 99202; G0463

== ENCOUNTER → 2021-10-17 16:00 | Outpatient (CLI) | payer OTHER, SELFPAY ==
[2021-10-17 18:45] LABS: Chloride 105 mmol/L (98-107)
[2021-10-17 18:47] LABS: Basophils # 0.2 K/mm3 (0-0.2); Basophils % 1.2 % (0.1-2.0); Eosinophils # 0.6 K/mm3 (0.0-0.4); Eosinophils % 3.9 % (0.1-12.0); Hematocrit 41.5 % (37.0-47.0); Hemoglobin 13.9 g/dL (12.2-16.2); Lymphocytes # 4.5 K/mm3 (0.7-4.5); Lymphocytes % 30.2 % (10-50); Mean Corpuscular HGB Conc 33.6 g/dL (31.8-35.4); Mean Corpuscular Hemoglobin 31.4 pg (27.0-31.2); Mean Corpuscular Volume 93.5 fl (81-99); Mean Platelet Volume 9.5 fl (7.4-10.4); Monocytes # 0.7 K/mm3 (0.1-1.0); Monocytes % 4.6 % (1.7-9.3); Neutrophils # 8.9 K/mm3 (1.8-7.8); Neutrophils % 60.1 % (37.0-80.0); Platelet Count 319 K/mm3 (142-424); Red Blood Count 4.43 M/mm3 (4.20-5.40); Red Cell Distribution Width 14.6 % (11.5-17.5); Sodium 137 mmol/L (136-145); White Blood Count 14.8 K/mm3 (4.8-10.8)
[2021-10-17 18:48] LABS: Alanine Aminotransferase 19 U/L (12-78); Alkaline Phosphatase 67 U/L (38-126); Anion Gap 10.9 mEq/L (5-15); Aspartate Amino Transferase 26 U/L (14-36); Bilirubin,Total 0.3 mg/dl (0.2-1.3); Blood Urea Nitrogen 12 mg/dl (7-17); Carbon Dioxide 25 mmol/L (22.0-30.0); Cholesterol 253 mg/dl (140-200); Estimated Glomerular Filt Rate 83 ml/min (>60); GFR (African American) 100 ML/MIN (>60); Potassium 3.9 mmoL/L (3.5-5.1)
[2021-10-17 18:49] LABS: Triglycerides 412 mg/dl (30-150)
[2021-10-17 18:51] LABS: Albumin Level 4.1 g/dl (3.5-5.0); Albumin/Globulin Ratio 1.6 (1.1-1.8); Calcium 9.1 mg/dl (8.4-10.2); Chol/HDL Ratio 6.7 (1-3.5); Globulin 2.5 g/dL (1.3-3.2); Glucose 79 mg/dl (74-100); HDL Cholesterol 38 mg/dl (40-60); Total Protein,Serum 6.6 g/dl (6.3-8.2)
[2021-10-17 19:00] LABS: Direct LDL Cholesterol 179.72 mg/dL (100-129)
[2021-10-17 19:05] LABS: 25-OH Vitamin D, Total 36.1 ng/mL (30-100)
[2021-10-17 19:13] LABS: Hemoglobin A1C 5.2 % (4.0-6.0)
== END ==
PROVIDERS: Visit Provider Nurse Practitioner Family
DX: Z00.00 Encounter for general adult medical examination without abnormal findings (principal); Z83.3 Family history of diabetes mellitus; E66.9 Obesity, unspecified; Z68.35 Body mass index [BMI] 35.0-35.9, adult; F17.210 Nicotine dependence, cigarettes, uncomplicated
CPT/HCPCS: 80053; 80061; 82306; 83036; 84436; 84443; 85025

== ENCOUNTER 2021-11-13 23:55 | Emergency (ER) | payer OTHER, SELFPAY ==
--- NOTE | 2021-11-13 23:50 | ECG_ITS ---
APPROVED REPORT Exam: Resting ECG HR:76 bpm ECG Measurements Heart Rate 76 AXES MD 130 P -12 QRSd 78 QRS 92 QT 365 T 14 QTc 395 Conclusion SINUS RHYTHM BORDERLINE RIGHT AXIS DEVIATION [QRS AXIS > 90] NONSPECIFIC T-WAVE ABNORMALITY BORDERLINE ECG UNCONFIRMED REPORT Electronically signed by : Sanju Quinn MD 11/14/2021 14:11:24
[2021-11-13 23:56] VITALS: BP 113/77; PULSE 99; RESP 16; TEMP 37.7; O2SAT 99; BMI 35.1
[2021-11-13 23:57] VITALS: BMI 35.1
--- NOTE | 2021-11-13 23:58 | XR_ITS ---
PROCEDURE INFORMATION: Exam: XR Chest Exam date and time: 11/14/2021 12:52 AM Age: 31 years old Clinical indication: Sternal or substernal pain; Additional info: Chest pain epigastric pain TECHNIQUE: Imaging protocol: XR of the chest. Views: 2 views. COMPARISON: No relevant prior studies available. FINDINGS: Lungs: Subtle interstitial haziness. Granulomatous change. No consolidation. Pleural spaces: Unremarkable. No pleural effusion. No pneumothorax. Heart/Mediastinum: Unremarkable. No cardiomegaly. Bones/joints: Unremarkable. IMPRESSION: No acute findings.
[2021-11-14] VITALS: BP 119/82; PULSE 88; PULSE 90; O2SAT 98
--- NOTE | 2021-11-14 00:16 | PC.NURSE ---
ER speaking with pt
[2021-11-14 00:17] LABS: Basophils # 0.2 K/mm3 (0-0.2); Basophils % 1.7 % (0.1-2.0); Eosinophils # 0.6 K/mm3 (0.0-0.4); Eosinophils % 4.5 % (0.1-12.0); Hematocrit 43.3 % (37.0-47.0); Hemoglobin 14.4 g/dL (12.2-16.2); Lymphocytes % 23.8 % (10-50); Mean Corpuscular HGB Conc 33.4 g/dL (31.8-35.4); Mean Corpuscular Hemoglobin 30.9 pg (27.0-31.2); Mean Corpuscular Volume 92.6 fl (81-99); Mean Platelet Volume 9.3 fl (7.4-10.4); Monocytes # 0.5 K/mm3 (0.1-1.0); Monocytes % 4.1 % (1.7-9.3); Neutrophils # 8.2 K/mm3 (1.8-7.8); Neutrophils % 65.9 % (37.0-80.0); Platelet Count 316 K/mm3 (142-424); Red Blood Count 4.67 M/mm3 (4.20-5.40); White Blood Count 12.4 K/mm3 (4.8-10.8)
[2021-11-14 00:26] LABS: Amylase 83 U/L (30-110)
[2021-11-14 00:28] LABS: Alanine Aminotransferase 23 U/L (12-78); Albumin Level 4.6 g/dl (3.5-5.0); Alkaline Phosphatase 61 U/L (38-126); Anion Gap 13.7 mEq/L (5-15); Aspartate Amino Transferase 34 U/L (14-36); Bilirubin,Direct 0.2 mg/dl (0.0-0.4); Bilirubin,Indirect 0.2 mg/dL (0.0-0.9); Bilirubin,Total 0.4 mg/dl (0.2-1.3); Bilirubin,Unconjugated 0.3 mg/dL (0.0-1.1); Blood Urea Nitrogen 7 mg/dl (7-17); Calcium 9.4 mg/dl (8.4-10.2); Carbon Dioxide 23 mmol/L (22.0-30.0); Chloride 104 mmol/L (98-107); Creatinine Clearance Estimated 133 mL/min (50-200); Estimated Glomerular Filt Rate 83 ml/min (>60); GFR (African American) 100 ML/MIN (>60); Glucose 112 mg/dl (74-100); Lipase 61 U/L (23-300); Potassium 3.7 mmoL/L (3.5-5.1); Sodium 137 mmol/L (136-145); Total Protein,Serum 7.8 g/dl (6.3-8.2)
[2021-11-14 00:33] LABS: C-Reactive Protein 18.5 mg/L (0-4)
[2021-11-14 00:39] LABS: Erythrocyte Sedimentation Rate 18 mm/hr (0-20)
--- NOTE | 2021-11-14 00:41 | HMH.EDNVD ---
ED Disposition Clinical Impression: Abdominal pain Qualifiers: Abdominal location: right upper quadrant Qualified Code(s): R10.11 - Right upper quadrant pain Disposition: Home, Self-Care Condition on Discharge: Good Instructions: DI for Acute Abdominal Pain Additional Instructions: call pcp this am Referrals: Provider,Referral, [Primary Care Provider] - - Critical Care Critical Care Time: No Attestation: On 11/13/21, the high probability of a clinically significant, sudden or life threatening deterioration of the following system(s) required my full and direct attention, intervention and personal management. The time I documented below is in addition to time spent performing reported procedures but includes the following listed in this critical care notation. Medical Decision Making - Medical Records Medical records reviewed: Yes: I reviewed the patient's medical records. - Phillip Inquiry Pt receiving controlled substance: No Vital Signs: 11/13/21 23:56 11/14/21 00:00 Temperature 100 F H Temperature Source Oral Pulse Rate 88 Pulse Rate [Right Brachial] 99 H Respiratory Rate 16 Blood Pressure 119/82 Blood Pressure [Right Arm] 113/77 Blood Pressure Mean [Right Arm] 89 Blood Pressure Source [Right Arm] Automatic Cuff Blood Pressure Position [Right Arm] Sitting 02 Sat by Pulse Oximetry 99 98 Oxygen Delivery Method Room Air Room Air - Lab Data Lab results reviewed: Yes: I reviewed the patient's lab results. Lab Results 11/14/21 00:01: WBC 12.4 H, RBC 4.67, Hgb 14.4, Hct 43.3, MCV 92.6, MCH 30.9, MCHC 33.4, RDW 14.0, Plt Count 316, MPV 9.3, Neut % (Auto) 65.9, Lymph % (Auto) 23.8, [place] % (Auto) 4.1, Eos % (Auto) 4.5, Baso % (Auto) 1.7, Neut # (Auto) 8.2 H, Lymph # (Auto) 3.0, [place] # (Auto) 0.5, Eos # (Auto) 0.6 H, Baso # (Auto) 0.2, ESR 18 11/14/21 00:01: Troponin I < 0.01, C-Reactive Protein 18.5 H, Amylase 83 11/14/21 00:01: Sodium 137, Potassium 3.7, Chloride 104, Carbon Dioxide 23, Anion Gap 13.7, BUN 7, Creatinine 0.80, Estimated Creat Clear 133, Estimated GFR 83, Est GFR ( Amer) 100, Glucose 112 H, Calcium 9.4, Total Bilirubin 0.4, Direct Bilirubin 0.2, Conjugated Bilirubin 0.0, Indirect Bilirubin 0.2, Unconjugated Bilirubin 0.3, AST 34, ALT 23, Alkaline Phosphatase 61, Total Protein 7.8, Albumin 4.6, Lipase 61, Procalcitonin 0.060 11/14/21 00:01: Serum HCG, Qual Negative Result diagrams: 11/14/21 00:01 11/14/21 00:01 Orders (Tests/Meds): ED MEDICATIONS Generic Name Dose Route Start Last Admin Trade Name Freq PRN Reason Stop Dose Admin Lactated Ringer's 1,000 mls @ 999 mls/hr 11/14/21 00:15 11/14/21 00:11 Lactated Ringer's 1000 Ml Bag IV 11/14/21 01:15 999 mls/hr .Q1H1M MARTIN Administration Sodium Chloride 8 ml 11/14/21 00:04 11/14/21 00:10 Sodium Chloride 0.9% 10ml Vial IV 12/14/21 00:03 8 ml NEEDED PRN Administration dilute pepcid Discontinued Medications Generic Name Dose Route Start Last Admin Trade Name Freq PRN Reason Stop Dose Admin Famotidine 20 mg 11/14/21 00:04 11/14/21 00:10 Famotidine 20mg/2ml Vial IV 11/14/21 00:05 20 mg ONCE ONE Administration Iopamidol 75 ml 11/14/21 01:14 11/14/21 01:15 Iopamidol-370 (76%);100ml Bottle IV 11/14/21 01:15 75 ml ONCE ONE Administration Metoclopramide HCl 10 mg 11/14/21 00:04 11/14/21 00:10 Metoclopramide Hcl 10mg/2ml Vial IVP 11/14/21 00:05 10 mg ONCE ONE Administration Ondansetron HCl 4 mg 11/14/21 00:01 11/14/21 00:10 Ondansetron 4mg/2ml Vial IV 11/14/21 00:02 4 mg ONCE ONE Administration Sodium Chloride 10 ml 11/14/21 01:14 11/14/21 01:15 Sodium Chloride 0.9% 10ml Syr (Rad Only) IV 11/14/21 01:15 10 ml ONCE ONE Administration ORDERS Category Date Time Status XR chest 2V Stat Exams 11/13/21 23:58 Taken Troponin I Q3H Lab 11/14/21 03:00 Ordered Troponin I Q3H Lab 11/14/21 06:00 Ordered UA [Urinalysis and Microscop
[2021-11-14 00:42] LABS: HCG Qualitative, Serum Negative (Negative)
--- NOTE | 2021-11-14 00:42 | CT_ITS ---
PROCEDURE INFORMATION: Exam: CT Abdomen And Pelvis With Contrast Exam date and time: 11/14/2021 1:05 AM Age: 31 years old Clinical indication: Abdominal pain; Epigastric; Additional info: Mid epigastric pain TECHNIQUE: Imaging protocol: Computed tomography of the abdomen and pelvis with contrast. Radiation optimization: All CT scans at this facility use at least one of these dose optimization techniques: automated exposure control; mA and/or kV adjustment per patient size (includes targeted exams where dose is matched to clinical indication); or iterative reconstruction. Contrast material: ISOVUE; Contrast volume: 75 ml; Contrast route: IV; COMPARISON: CT ABDOMEN PELVIS W CON 01/07/2021 7:59 PM FINDINGS: Lungs: Mild bibasilar atelectasis. Liver: Normal. No mass. Gallbladder and bile ducts: Normal. No calcified stones. No ductal dilation. Pancreas: Normal. No ductal dilation. Spleen: Normal. No splenomegaly. Adrenal glands: Normal. No mass. Kidneys and ureters: Duplex kidneys. Mild bilateral renal scarring. Stomach and bowel: The majority of the colon is collapsed, which is a nonspecific appearance that can correlate with colitis in the appropriate clinical setting. Appendix: Unremarkable appendix. Intraperitoneal space: Trace free fluid in the pelvis, likely physiologic. Arteries: Unremarkable. No abdominal aortic aneurysm. Lymph nodes: Unremarkable. No enlarged lymph nodes. Urinary bladder: Unremarkable as visualized. Reproductive: Recently ruptured left ovarian follicle. Bones/joints: Postsurgical changes of the right acetabulum. Soft tissues: Tiny fat containing umbilical hernia. IMPRESSION: 1. Recently ruptured left ovarian follicle. 2. The majority of the colon is collapsed, which is a nonspecific appearance that can correlate with colitis in the appropriate clinical setting.
[2021-11-14 00:48] LABS: Troponin I < 0.01 ng/ml (0.00-0.034)
[2021-11-14 01:57] VITALS: BP 95/79; PULSE 89; RESP 18; TEMP 36.7; O2SAT 98
== END 2021-11-14 02:01 | disposition home or self-care (01) ==
PROVIDERS: Emergency Provider Emergency Medicine
DX: R10.11 Right upper quadrant pain (principal); R10.13 Epigastric pain; R11.2 Nausea with vomiting, unspecified; E78.5 Hyperlipidemia, unspecified; F17.210 Nicotine dependence, cigarettes, uncomplicated
CPT/HCPCS: 71046; 74177; 80048; 80076; 82150; 83690; 84145; 84484; 84703; 85025; 85651; 86140; 93005; 96360; 96375; 99285; J2405; Q9967

== ENCOUNTER → 2021-11-14 14:36 | Outpatient (CLI) | payer OTHER, SELFPAY ==
--- NOTE | 2021-11-14 15:52 | XR_ITS ---
PROCEDURE INFORMATION: Exam: XR Left Ankle Exam date and time: 11/14/2021 4:03 PM Age: 31 years old Clinical indication: Pain; Ankle; Left; Prior surgery; Additional info: Left lateral ankle pain TECHNIQUE: Imaging protocol: XR Left ankle. Views: 3 or more views. COMPARISON: CR XR ANKLE LT MIN 3V 09/16/2019 4:46 PM FINDINGS: Fixation screws in the medial malleolus are stable. Extensive fixation of the lateral malleolus with compression plate and multiple screws, also stable. No evidence of hardware complications. Specifically, no evidence for hardware loosening or periprosthetic fractures. Small plantar calcaneal spur. No acute fracture or dislocation. No aggressive osseous lesion. No significant soft tissue swelling. IMPRESSION: No acute skeletal pathology or hardware complications.
--- NOTE | 2021-11-14 15:52 | XR_ITS ---
PROCEDURE INFORMATION: Exam: XR Left Foot Complete; Alignment Exam date and time: 11/14/2021 4:03 PM Age: 31 years old Clinical indication: Pain; Lower leg; Left; Prior surgery TECHNIQUE: Imaging protocol: XR Left foot. Views: 3 or more views. COMPARISON: CR [id number] XR foot wt bearing LT 3V 10/15/2018 10:33 AM FINDINGS: Partially visualized fixation hardware at the medial and lateral malleoli, fully described in the ankle films performed concomitantly (please review). Normal anatomic alignment and bone density. No acutely displaced fracture or dislocation. No aggressive osseous lesions. No significant soft tissue swelling. Tiny plantar calcaneal spur. IMPRESSION: No acute skeletal pathology or hardware complications.
--- NOTE | 2021-11-14 15:52 | XR_ITS ---
PROCEDURE INFORMATION: Exam: XR Left Tibia and Fibula Exam date and time: 11/14/2021 4:03 PM Age: 31 years old Clinical indication: Pain; Lower leg; Left; Prior surgery; Additional info: Lle (gong) pain TECHNIQUE: Imaging protocol: XR Left tibia and fibula. Views: 2 views. COMPARISON: CR XR TIBIA FIBULA LT 2V 09/16/2019 4:46 PM FINDINGS: Redemonstration of fixation screws in the medial malleolus are stable. Redemonstration of extensive fixation of the lateral malleolus with compression plate and multiple screws, also stable. No evidence of hardware complications. Specifically, no evidence for hardware loosening or periprosthetic fractures. Small plantar calcaneal spur. No acute fracture or dislocation. No aggressive osseous lesion. No significant soft tissue swelling. IMPRESSION: No acute skeletal pathology or hardware complications.
[2021-11-14 17:08] LABS: Chloride 108 mmol/L (98-107); Sodium 140 mmol/L (136-145)
[2021-11-14 17:09] LABS: Potassium 4.3 mmoL/L (3.5-5.1)
[2021-11-14 17:11] LABS: Alanine Aminotransferase 18 U/L (12-78); Alkaline Phosphatase 61 U/L (38-126); Anion Gap 10.3 mEq/L (5-15); Aspartate Amino Transferase 23 U/L (14-36); Bilirubin,Total 0.3 mg/dl (0.2-1.3); Blood Urea Nitrogen 12 mg/dl (7-17); Calcium 9.8 mg/dl (8.4-10.2); Carbon Dioxide 26 mmol/L (22.0-30.0); Estimated Glomerular Filt Rate 83 ml/min (>60); GFR (African American) 100 ML/MIN (>60); Glucose 103 mg/dl (74-100)
[2021-11-14 17:12] LABS: Albumin Level 3.9 g/dl (3.5-5.0); Albumin/Globulin Ratio 1.6 (1.1-1.8); Globulin 2.4 g/dL (1.3-3.2); Total Protein,Serum 6.3 g/dl (6.3-8.2)
[2021-11-14 17:17] LABS: C-Reactive Protein 15.5 mg/L (0-4)
[2021-11-14 19:01] LABS: Basophils # 0.2 K/mm3 (0-0.2); Basophils % 1.7 % (0.1-2.0); Eosinophils # 0.5 K/mm3 (0.0-0.4); Eosinophils % 3.4 % (0.1-12.0); Hematocrit 40.9 % (37.0-47.0); Hemoglobin 13.3 g/dL (12.2-16.2); Lymphocytes # 3.1 K/mm3 (0.7-4.5); Lymphocytes % 22.7 % (10-50); Mean Corpuscular HGB Conc 32.5 g/dL (31.8-35.4); Mean Corpuscular Hemoglobin 30.7 pg (27.0-31.2); Mean Corpuscular Volume 94.6 fl (81-99); Mean Platelet Volume 9.4 fl (7.4-10.4); Monocytes # 0.6 K/mm3 (0.1-1.0); Monocytes % 4.7 % (1.7-9.3); Neutrophils # 9.2 K/mm3 (1.8-7.8); Neutrophils % 67.5 % (37.0-80.0); Platelet Count 299 K/mm3 (142-424); Red Blood Count 4.33 M/mm3 (4.20-5.40); Red Cell Distribution Width 14.2 % (11.5-17.5); White Blood Count 13.7 K/mm3 (4.8-10.8)
[2021-11-14 20:21] LABS: Erythrocyte Sedimentation Rate 36 mm/hr (0-20)
== END ==
PROVIDERS: PCP Nurse Practitioner Family; Visit Provider Podiatrist
DX: M79.605 Pain in left leg (principal); M79.672 Pain in left foot; D36.7 Benign neoplasm of other specified sites; G89.29 Other chronic pain
CPT/HCPCS: 36415; 73590; 73610; 73630; 80053; 85025; 85651; 86140

== ENCOUNTER → 2021-11-15 08:48 | Outpatient (CLI) | payer OTHER, SELFPAY ==
--- NOTE | 2021-11-15 08:51 | CT_ITS ---
FINAL REPORT CLINICAL HISTORY: ABSCESS, left lateral ankle COMPARISON: Plain film dated November 14, 2021 FINDINGS: CT LEFT ANKLE WITHOUT CONTRAST TECHNIQUE: Axial, coronal, and sagittal images were obtained of the left ankle. This study was performed with techniques to keep radiation doses as low as reasonably achievable, (ALARA). Individualized dose reduction techniques using automated exposure control or adjustment of mA and/or kV according to the patient's size were employed. FINDINGS: There are sideplate and screws securing the distal fibula. There are 2 screws in the medial malleolus. The mortise is intact. There is localized soft tissue attenuation lateral to the distal fibula best seen on image 37-series 3. Evaluation is markedly degraded by streak artifact. It is unclear if this represents cellulitis or abscess. IMPRESSION: Localized soft tissue attenuation lateral to the distal fibula, cellulitis versus abscess. Obscured by artifact. Reviewed, Interpreted and Dictated by Cuate Martin MD Transcribed by Brandin Michael Authenticated by Cuate Martin MD on 11/15/2021 10:19:05 AM [facility]
--- NOTE | 2021-11-15 10:19 | XR_ITS ---
FINAL REPORT TECHNIQUE: Chest PA & Lateral CLINICAL HISTORY: smoker, preop testing COMPARISON: November 14, 2021 FINDINGS: 2 views of the chest were performed. The heart size is normal. The mediastinum is within normal limits. There is no acute cardiopulmonary process. There are no pleural effusions. There is no pneumothorax. The bony thorax appears intact. IMPRESSION: No acute cardiopulmonary process. Reviewed, Interpreted and Dictated by Cuate Martin MD Transcribed by Brandin Michael Authenticated by Cuate Martin MD on 11/15/2021 12:20:13 PM [facility]
--- NOTE | 2021-11-15 10:46 | ECG_ITS ---
APPROVED REPORT Exam: Resting ECG HR:66 bpm ECG Measurements Heart Rate 66 AXES PA 131 P -7 QRSd 76 QRS 76 QT 366 T 30 QTc 380 Conclusion SINUS RHYTHM WITH SINUS ARRHYTHMIA NONSPECIFIC T-WAVE ABNORMALITY BORDERLINE ECG UNCONFIRMED REPORT Electronically signed by : Sanju Quinn MD 11/17/2021 08:05:38
[2021-11-16 06:55] LABS: Coronavirus 19, PCR Not Detected (NotDetected); Influenza A, PCR Not Detected (NotDetected); Influenza B, PCR Not Detected (NotDetected)
== END ==
PROVIDERS: PCP Physician Assistant; Visit Provider Podiatrist
DX: Z01.818 Encounter for other preprocedural examination (principal); Z11.52 Encounter for screening for COVID-19; M25.572 Pain in left ankle and joints of left foot
CPT/HCPCS: 71046; 73700; 93005; C9803; U0003; U0005

== ENCOUNTER → 2021-11-15 16:44 | Outpatient (CLI) | payer OTHER, SELFPAY | PROVIDERS: Visit Provider Podiatrist | DX: Z51.89 Encounter for other specified aftercare (principal); M25.572 Pain in left ankle and joints of left foot | CPT/HCPCS: 87070; 87077; 87186; 87205 ==

== ENCOUNTER 2021-11-16 10:38 | Day surgery (SDC) | payer OTHER, SELFPAY ==
[2021-11-16] VITALS (11 sets, daily range): BP systolic 112–134; BP diastolic 65–90; PULSE 80–97; RESP 12–18; TEMP 36.4–43; O2SAT 95–100; BMI 35.1
--- NOTE | 2021-11-16 | XR_ITS ---
FINAL REPORT CLINICAL HISTORY: PILO- HARDWARE REMOVAL .14 fluoro time FINDINGS: Fluoroscopic guidance was provided for the operating services. A single spot film was provided. 17 seconds of fluoroscopy time was utilized. IMPRESSION: 17 seconds of fluoroscopy time. Reviewed, Interpreted and Dictated by Cuate Martin MD Transcribed by Brandin Michael Authenticated by Cuate Martin MD on 11/16/2021 03:50:34 PM [facility]
--- NOTE | 2021-11-16 10:57 | ECG_ITS ---
APPROVED REPORT Exam: Resting ECG HR:82 bpm ECG Measurements Heart Rate 82 AXES KS 132 P -12 QRSd 85 QRS 35 QT 353 T 29 QTc 391 Conclusion SINUS RHYTHM NONSPECIFIC T-WAVE ABNORMALITY BORDERLINE ECG UNCONFIRMED REPORT Electronically signed by : Sanju Quinn MD 11/17/2021 08:01:50
--- NOTE | 2021-11-16 11:50 | HMH.ANESCL ---
[facility] Anesthesia Checklist - Patient Identification Patient Identification: Arm Band - Structural Data Admitted From: Home Planned Operative Procedure/s: Left Ankle I&D, Hardware Removal, Bone Bx Consent for Planned Operative Procedure(s) Verified: Yes Verified Documents: Surgical Consent, History and Physical - NPO Status Verified Time NPO: 00:00 - Additional verifications Anesthesia Reactions: No (vomitting) - Airway Assessment C-Spine Mobility Assessed: Yes (mp2) TMJ Mobility Assessed: Yes Dentition: Good Dentition (Upper partial removed) - Neurological Assessment Level of Consciousness: Awake, Alert - Anesthesia Plan Anesthesia Risk discussed: Yes Anesthesia Plan: Verified ASA Class: II Anesthesia Type: General w/block (Popliteal. Risks/benefits discussed. Pt verbalized understanding) [facility] History I have reviewed the patient's past medical history: Yes Medical History: Reports:: Anxiety, Hyperlipidemia Denies:: Cancer, Diabetes Mellitus Type 1, Diabetes Mellitus Type 2, Hypertension, Internal Pacemaker, MRSA, Seizures *Have you ever received a pneumonia vaccine?: No *Have you received a flu vaccine this season?: No Anesthesia experience/problems:: nac Laterality Cases: Bilateral: Other Other Surgeries: Yes: Other. No: Pacemaker Amputation: No Fractures: No - *Social History Last grade of school completed: High school graduate Smoking Status: Current every day smoker Tobacco Type: cigarettes # Packs/Day (cigarettes): 1 Alcohol Intake: never Alcohol Intake Frequency:: holidays/special occasions only Substance Use Type: denies use *Occupational Status:: unemployed Housing: house Household Members: family *Travel in the last 8 weeks: None - Psychiatric History Pschychiatric History:: Reports:: Anxiety Family Hx:: Coronary Artery Disease, Heart Attack
--- NOTE | 2021-11-16 14:00 | XR_ITS ---
FINAL REPORT CLINICAL HISTORY: Left HW removal COMPARISON: November 14, 2021 FINDINGS: LEFT ANKLE Three views demonstrate no acute fracture or dislocation. There has been interval removal of sideplate and screws from the distal fibula. There is calcification along the lateral aspect of the distal fibula. There are screws present in the medial malleolus. The visualized joint spaces are normally aligned. There is gas in the soft tissue consistent with recent surgery. IMPRESSION: Interval hardware removal as described. Reviewed, Interpreted and Dictated by Cuate Martin MD Transcribed by Ban Talavera Authenticated by Cuate Martin MD on 11/16/2021 06:04:17 PM [facility]
--- NOTE | 2021-11-16 15:06 | P.PN_ITS ---
[facility] Anesthesia Record Part I Intake, IV Amount: 1,500 Estimated blood loss (mL): 0 Urine output (mL): 0 Blood Pressure: 134/65 SaO2: 100 Pulse Rate: 95 Respiratory Rate: 12 Temperature: 98.6 F Patient is:: Awake, Stable Stable to PACU at:: 15:00
--- NOTE | 2021-11-16 15:07 | HMH.OPNOTE ---
Date of procedure: 11/16/21 Pre-op Diagnosis:: 1. Left ankle infection, abscess 2. Left ankle scar contracture 3. History of left ankle ORIF with retained orthopedic hardware 4. Left ankle pain 5. Left ankle posttraumatic osteoarthritis 6. Left ankle synovitis Post-op Diagnosis:: Same Procedure performed:: 1. Left ankle incision and drainage 2. Left ankle hardware removal 3. Left open fibula bone biopsy 4. Left ankle synovectomy Surgeon:: RIGOBERTO Fall IMPROVEMENT LEAD:: Skip Gao Anesthesia: regional (Left popliteal block), LMA Estimated blood loss (mL): 20 Clinical Note:: Patient is a 31-year-old female who sustained a right calcaneal fracture and left bimalleolar ankle fracture which was surgically fixed at [facility] on 08/26/2012 and 09/02/2012. Operative notes reviewed. New images were discussed with the patient. We discussed conservative versus surgical treatment options. We discussed conservative care including continued oral vs IV antibiotics and local wound care versus surgical incision and drainage. Patient understands that they could have wound healing complications including delayed healing and infection. We discussed that if the wound does not heal, it is possible that they may need further debridement. Patient understands if infection spreads into the bone, it may warrant proximal amputation and could result in further loss of digits, loss of partial foot or loss of leg. We discussed the risks and benefits in great detail. Other surgical risks include: prolonged pain and swelling, further infection requiring oral or IV antibiotics, delay in healing of soft tissue or bone, nerve or blood vessel damage, CRPS/RSD, DVT, anesthesia complications, and even . All questions answered. Patient verbalized understanding. Consent obtained. Pre-op testing pending. Rx given for Vera, Zofran, Ibuprofen, Bactrim DS. Operative findings:: Left ankle not noted. In the office yesterday wound culture taken. Hardware noted to the posterior lateral ankle. Screw stripped to the proximalmost screw. There is no rosita purulence noted. The soft tissue underneath the skin where the knot was was synovitic and irregular. There was about a 3 cm round soft tissue synovitic mass which had serous fluid. The mass arose from the peroneal tendon sheath. Some of the screws were over the periosteum. Bone evaluated and noted to be intact. Bone texture and color was within normal limits with no obvious sign of osteomyelitis. Fracture well-healed. Once plate was removed, intraoperative fluoroscopy utilized to stress the ankle and no evidence of ankle instability. Operative note:: On this date and time patient was deemed an appropriate surgical candidate. With informed consent signed, the patient was taken to the operating theater after anesthesia gave regional left popliteal nerve block. The patient was positioned supine. LMA anesthesia was induced. Tourniquet was applied to the left thigh at 250 mmHg. 1 g IV vancomycin infused. Left ankle incision and drainage: The left lower extremity was prepped and drapped in normal sterile fashion. The tourniquet was not inflated. Incision was made with a 15 blade directly over the knot on the left lateral ankle/distal leg. No rosita purulence was noted. Under the skin there was a 3 cm round synovitic soft tissue mass/nodule. Care was taken to dissect around the mass. It was removed in total and sent as a tissue specimen to culture and pathology. Left Ankle Hardware Removal: Attention was directed to the left distal fibula, where a dorsal linear incision was mapped out over the previous incision site. Dissection was carried thru skin and sub q tissue, with care to maintain surgical hemostasis. Full-thickness incision down to the hardware and bone. The hardware was visualized. The screws x 6 and a locking plate were removed. They were sent as culture. Left Ankle Synovectomy: The soft tissue appeared mostly healthy with minimal bui and
--- NOTE | 2021-11-16 15:35 | PC.NURSE ---
pt voided per bedpan
[2021-11-17 13:20] VITALS: BP 114/74; PULSE 97; TEMP 36.4
--- NOTE | 2021-11-17 13:20 | HMH.ANESII ---
[facility] Anesthesia Record Part II Discharge Time: 15:30 Destination: Surgical Day Care (OP Surgery) PACU nurse assessment reviewed?: Yes Patient Condition:: Good Anesthesia Complications:: None Swallowing reflex intact?: Yes Cyanosis?: No Blood Pressure: 114/74 Pulse Rate: 97 Temperature: 97.6 F Mental Status: Alert & Oriented Pain level:: 0 Nausea and/or vomitting:: None Intake, IV Amount: 0
== END 2021-11-16 16:00 | disposition home or self-care (01) ==
LOC: OR 10:39
PROVIDERS: PCP Physician Assistant; Visit Provider Podiatrist
PROC: (CPT 20680; principal; 2021-11-16 12:00)
DX: M19.172 Post-traumatic osteoarthritis, left ankle and foot (principal); M65.872 Other synovitis and tenosynovitis, left ankle and foot; L02.416 Cutaneous abscess of left lower limb; G57.92 Unspecified mononeuropathy of left lower limb; L03.116 Cellulitis of left lower limb; E78.5 Hyperlipidemia, unspecified; F17.210 Nicotine dependence, cigarettes, uncomplicated; Z79.899 Other long term (current) drug therapy; T84.84XA Pain due to internal orthopedic prosthetic devices, implants and grafts, initial encounter; Y83.1 Surgical operation with implant of artificial internal device as the cause of abnormal reaction of the patient, or of later complication, without mention of misadventure at the time of the procedure
CPT/HCPCS: 20680; 11423; 20245; 27625; 73600; 73610; 87070; 87205; 88304; 93005; 96374; C1713; J2405; J3370

== ENCOUNTER → 2021-12-05 15:18 | Outpatient (CLI) | payer OTHER, SELFPAY | PROVIDERS: Visit Provider Internal Medicine | DX: Z01.812 Encounter for preprocedural laboratory examination (principal); Z11.52 Encounter for screening for COVID-19; R10.9 Unspecified abdominal pain | CPT/HCPCS: C9803; U0003; U0005 ==

== ENCOUNTER 2021-12-07 10:18 | Day surgery (SDC) | payer OTHER, SELFPAY ==
[2021-12-05 13:20] VITALS: BMI 34.0
[2021-12-07 10:39] VITALS: BP 120/74; PULSE 95; RESP 18; TEMP 36.2; O2SAT 96
[2021-12-07 10:41] LABS: Urine Pregnancy, HCG Qual. Negative (Negative)
--- NOTE | 2021-12-07 11:10 | HMH.ANESCL ---
[facility] Anesthesia Checklist - Patient Identification Patient Identification: Arm Band - Structural Data Admitted From: Home Planned Operative Procedure/s: EGD/Colonoscopy Consent for Planned Operative Procedure(s) Verified: Yes - NPO Status Verified Time NPO: 00:00 - Additional verifications Anesthesia Reactions: No (vomitting) - Airway Assessment C-Spine Mobility Assessed: Yes TMJ Mobility Assessed: Yes Dentition: Poor Dentition - Neurological Assessment Level of Consciousness: Awake Hx Seizures: No Numbness or tingling in extremities: No - Anesthesia Plan Anesthesia Risk discussed: Yes Anesthesia Plan: Verified ASA Class: II Anesthesia Type: MAC [facility] History I have reviewed the patient's past medical history: Yes Medical History: Reports:: Anxiety, Gastroesophageal Reflux Disease(GERD), Hyperlipidemia Denies:: Cancer, Diabetes Mellitus Type 1, Diabetes Mellitus Type 2, Hypertension, Internal Pacemaker, MRSA, Seizures *Have you ever received a pneumonia vaccine?: No *Have you received a flu vaccine this season?: No Anesthesia experience/problems:: None Laterality Cases: Bilateral: Other Other Surgeries: Yes: No Previous Surgery, Other. No: Pacemaker Amputation: No Fractures: No - *Social History Last grade of school completed: High school graduate Smoking Status: Current every day smoker Tobacco Type: cigarettes # Packs/Day (cigarettes): 1 Alcohol Intake: current Alcohol Intake Frequency:: holidays/special occasions only Substance Use Type: denies use *Occupational Status:: unemployed Housing: house Household Members: family *Travel in the last 8 weeks: None - Psychiatric History Pschychiatric History:: Reports:: Anxiety Family Hx:: Coronary Artery Disease, Heart Attack
[2021-12-07 11:25] VITALS: O2SAT 96
[2021-12-07 11:57] VITALS: BP 95/67; PULSE 87; RESP 18; TEMP 36.1; O2SAT 96
--- NOTE | 2021-12-07 11:57 | HMH.SCOPE ---
- Procedure: Date: 12/07/21 Patient Date of :: 1990 Procedure Performed:: Colonoscopy Indications:: The patient is a 31 year old with abdominal pain and constipation Performing Provider:: Vinnie Hinton MD Referring Provider:: Shima Lewis APRN Sedation:: See RN notes Procedure:: After placing the patient in the left lateral decubitus position, the colonoscopy was gently inserted into the rectum and under direct visualization advanced to the cecum which was identified by transillumination in the right lower quadrant, identification of the ileocecal valve, appendiceal orifice, and cecal strap. Color, texture, mucosa, and anatomy of the colon were carefully examined with the scope. Findings:: Anal canal: normal Rectum: Internal hemorrhoids Sigmoid colon: Sessile polyp 3-4 mm in size. Removed with snare autery polypectomy Descending colon: Sessile polyp 5 mm in size. Removed with snare cautery polypectomy Splenic flexure: normal Transverse colon: normal without polyps or inflammatory changes Hepatic flexure: normal Ascending colon: normal without polyps or inflammatory changes Cecum: normal Terminal ileum: not visualized Recommendations:: Await pathology results Miralax once daily Metamucil or citrucel to acheive atlease 20-25 gm fiber daily Repeat colonoscopy in 3 years Complications:: None Estimated blood obtained (mL): 0
--- NOTE | 2021-12-07 12:01 | HMH.SCOPE ---
- Procedure: Date: 12/07/21 Patient Date of :: 1990 Procedure Performed:: EGD Indications:: The patient is a 31 year old with globus sensation and abdominal pain. CT scan of abdomen/pelvis in October did not demonstrated etiology to abdominal pain Performing Provider:: Vinnie Hinton MD Referring Provider:: Shima Lewis APRN Sedation:: See RN notes Procedure:: The gastroscope was gently passed through the incisoral orifice into the oral cavity and under direct visualization the esophagus was intubated. The endoscope was passed down the esophagus, through the stomach, and into the duodenum. Color, texture, mucosa, and anatomy of the esophagus, stomach, and duodenum were carefully examined with the scope. Findings:: Oropharynx: normal Esophagus: normal. Biopsies obtained. Empiric dilatation was performed across UES with 54F bougie dilator for globus sensation EG Junction: intact at 37 cm Cardia: normal Fundus: normal Body: mild gastritis. biopsies obtained Antrum: mild gastritis. biopsies obtained Duodenal bulb: normal Duodenum (second and third portion): normal. biopsies obtained Recommendations:: Await pathology results Pantoprazole 40 mg once daily (prescription will be given to patient) Complications:: None Estimated blood obtained (mL): 0
[2021-12-07 12:07] VITALS: BP 103/67; PULSE 76; RESP 18; TEMP 36.1; O2SAT 94
[2021-12-07 12:17] VITALS: BP 103/68; PULSE 73; RESP 18; TEMP 36.1; O2SAT 95
[2021-12-07 12:35] VITALS: BP 97/68; PULSE 74; RESP 18; TEMP 36.1; O2SAT 97
== END 2021-12-07 12:35 | disposition home or self-care (01) ==
LOC: OUTP 10:19
PROVIDERS: PCP Physician Assistant; Visit Provider Internal Medicine
PROC: 0DJ08ZZ Inspection of Upper Intestinal Tract, Via Natural or Artificial Opening Endoscopic (ICD-10-PCS; CPT 43235; principal; 2021-12-07 11:00)
DX: K63.5 Polyp of colon (principal); K64.9 Unspecified hemorrhoids; K29.50 Unspecified chronic gastritis without bleeding; K21.00 Gastro-esophageal reflux disease with esophagitis, without bleeding; F41.9 Anxiety disorder, unspecified; E78.5 Hyperlipidemia, unspecified; Z72.0 Tobacco use; Z82.49 Family history of ischemic heart disease and other diseases of the circulatory system; Z88.6 Allergy status to analgesic agent
CPT/HCPCS: 45385; 43239; 81025; J2704

== ENCOUNTER → 2022-07-27 16:14 | Outpatient (CLI) | payer OTHER, SELFPAY ==
--- NOTE | 2022-07-27 16:18 | XR_ITS ---
PROCEDURE INFORMATION: Exam: XR Sacrum and Coccyx, 2 or More Views Exam date and time: 07/27/2022 4:22 PM Age: 32 years old Clinical indication: Pain in coccyx area and lumbago; Sciatica symptoms not specified; Additional info: Coccydynia TECHNIQUE: Imaging protocol: XR of the sacrum and coccyx, 2 or more views. COMPARISON: CT ABDOMEN PELVIS W CON 11/14/2021 1:05 AM FINDINGS: Bones/joints: Osseous alignment is normal. No acute fracture or arthritic change seen. Orthopedic hardware partially visualized in the right acetabulum. Soft tissues: Normal. IMPRESSION: No acute abnormality of the sacrum or coccyx
== END ==
PROVIDERS: PCP Physician Assistant; Visit Provider Physician Assistant
DX: M53.3 Sacrococcygeal disorders, not elsewhere classified (principal)
CPT/HCPCS: 72220

== ENCOUNTER → 2022-08-15 14:45 | Outpatient (CLI) | payer OTHER, SELFPAY ==
--- NOTE | 2022-08-15 14:45 | MR_ITS ---
FINAL REPORT CLINICAL HISTORY: coccydynia pain when sitting FINDINGS: Multiplanar MR images of the pelvis were performed without contrast. The exam was performed with attention to the sacrum and coccyx. There is mild deformity of the coccyx which may be due to old trauma or may be congenital. There is no acute fracture or marrow edema. The sacrum is unremarkable. The SI joints are normal. The sacral spinal canal is unremarkable. There is no evidence of presacral mass. IMPRESSION: No findings to account for symptoms. Reviewed, Interpreted and Dictated by Delta Head MD Transcribed by Ban Talavera Authenticated and [facility]
== END ==
PROVIDERS: PCP Physician Assistant; Visit Provider Physician Assistant
DX: M53.3 Sacrococcygeal disorders, not elsewhere classified (principal)
CPT/HCPCS: 72195

== ENCOUNTER 2022-08-25 18:03 | Emergency (ER) | payer OTHER, SELFPAY ==
[2022-08-25 18:10] VITALS: BP 106/81; PULSE 71; RESP 21; TEMP 36.4; O2SAT 95; BMI 31.8
--- NOTE | 2022-08-25 18:28 | EXP.UTC ---
Discharge Plan Disposition Patient Disposition: Home, Self-Care Condition: Good Prescriptions Prescriptions: New amoxicillin-pot clavulanate 875-125 mg Tablet 1 tab PO Q12H Qty: 20 0RF fluticasone propionate [Flonase Allergy Relief] 50 mcg/actuation spray,suspension 1 spray intranasal DAILY Qty: 16 0RF Rx Instructions: administer into each nostril No Action diclofenac sodium 75 mg tablet,delayed release (DR/EC) 75 mg PO BID Referrals Follow up/Referrals: Shima Lewis PA [Primary Care Provider] - See instructions Activity Restrictions/Add. Instructions Additional Instructions/Restrictions: *Monitor Temp, Over the counter Motrin or Tylenol as directed/as needed Tylenol every 4 hours and Motrin every 6 hours (as long as your family doctor has told you that you can take it) for fever or pain. and straight to ER if unable to lower temp less than 101.0 after medication given *Warm salt water gargles may help to soothe the throat *Throat Lozenges? *Warm fluids like tea with honey may help to soothe the throat? *Sleep elevated *Humidifier/Vaporizer Take medication as prescribed Follow up IMMEDIATELY for new or worsening symptoms or no Noticeable improvement over the next 48-72 hours. 911 for difficulty breathing or swallowing Clinical Impressions Clinical Impression: Otitis media Instructions Patient Instructions: DI for Sinusitis, Sinusitis, Middle Ear Infection Discharge ED Provider: Ragini Smith [facility] HPI General Stated complaint: EARS,BODY ACHES,DIARRHEA Mode of Arrival: Ambulatory Source of Information: Patient Limitations: No Limitations Time Seen by Provider: 08/25/22 18:28 Description of Symptoms (Recalled from Triage Doc. by RN): PATIENT C/O BODY ACHES, SINUS PRESSURE AND RIGHT EAR PAIN SINCE LAST SUNDAY HEENT Symptoms (Recalled from RN notes): Yes Resp Symptoms (Recalled from RN notes): No Skin Symptoms (Recalled from RN notes): No MS Symptoms (Recalled from RN notes): No Functional Status (Recalled from RN notes): WNL History of Present Illness Provider Complaint: Patient states that she hasnt felt well for about a week States that she has been having sinus congestion and pressure along with pain in her right ear and feeling achy and having headache States that today she was still not feeling well and felt like she has water or something in her ear Related Data Home Medications Medication Instructions Recorded Confirmed diclofenac sodium 75 mg 75 mg PO BID Pain 08/25/22 08/25/22 tablet,delayed release Previous Rx's Medication Instructions Recorded amoxicillin 875 mg-potassium 1 tab PO Q12H #20 tabs 08/25/22 clavulanate 125 mg tablet fluticasone propionate 50 1 spray intranasal DAILY #16 grams 08/25/22 mcg/actuation nasal spray,suspension (Flonase Allergy Relief) Allergies Allergy/AdvReac Type Severity Reaction Status Date / Time hydrocodone Allergy Vomiting Verified 07/27/22 15:38 Worker's Comp Is this a Worker's Comp case?: No [facility] Disclaimer: The information contained in this section may have been updated after the patient was seen, as this information can be updated by other users. Medical History (Updated 08/25/22 @ 18:34 by Ragini Smith APRN) Anxiety and depression Back Pain Cervical high risk human papillomavirus (HPV) DNA test positive Cervical intraepithelial neoplasia (ISABEL) Social History (Updated 08/25/22 @ 18:22 by Lexi Rodriguez RN) Smoking Status: Current every day smoker tobacco type: cigarettes packs per day: 1 second hand exposure: No alcohol intake: current substance use type: denies use current occupational status: unemployed Travel in the last 8 weeks: None household members: family housing: house caffeine: No ROS Obtained: Yes All systems reviewed & no additional complaints except as documented and Yes Systems reviewed as appropriate & no add
[2022-08-25 18:36] VITALS: BP 106/81; PULSE 71; RESP 21; TEMP 36.4; O2SAT 95
== END 2022-08-25 18:39 | disposition home or self-care (01) ==
PROVIDERS: Emergency Provider Nurse Practitioner; PCP Physician Assistant
DX: H66.90 Otitis media, unspecified, unspecified ear (principal)
CPT/HCPCS: 99212; 99213; G0463

== ENCOUNTER 2022-12-18 13:27 | Emergency (ER) | payer OTHER, SELFPAY ==
--- NOTE | 2022-12-18 13:45 | EXP.UTC ---
Discharge Plan Disposition Patient Disposition: Home, Self-Care Condition: Good Prescriptions Prescriptions: New benzonatate [benzonatate] 100 mg capsule 100 mg PO TIDP PRN (Reason: Cough) Qty: 30 0RF methylprednisolone 4 mg Tablets,Dose Pack 4 mg PO DIRECTED Qty: 21 0RF cefdinir 300 mg capsule 300 mg PO BID Qty: 20 0RF Referrals Follow up/Referrals: Shima Lewis PA [Primary Care Provider] - See instructions Activity Restrictions/Add. Instructions Additional Instructions/Restrictions: Drink plenty of fluids. Take tylenol or ibuprofen for pain or fever. Take the medications as directed. Follow up with your regular doctor. GO TO THE ER FOR ANY WORSENING SYMPTOMS Clinical Impressions Clinical Impression: UTI (urinary tract infection), Sinusitis Instructions Patient Instructions: Urinary Tract Infection, DI for Sinusitis Discharge ED Provider: Marco Ha [facility] General Stated complaint: possible UTI, chest congestion, cough Time Seen by Provider: 12/18/22 13:44 History of Present Illness Provider Complaint: She c/o sinus congestion, ear pain, and dysuria for the past 3 days. Related Data Previous Rx's Medication Instructions Recorded benzonatate 100 mg capsule 100 mg PO TIDP PRN Cough #30 caps 12/18/22 cefdinir 300 mg capsule 300 mg PO BID #20 caps 12/18/22 methylprednisolone 4 mg tablets in 4 mg PO DIRECTED #21 tabs 12/18/22 a dose pack Allergies Allergy/AdvReac Type Severity Reaction Status Date / Time No Known Allergies Allergy Verified 12/18/22 13:57 [facility] Disclaimer: The information contained in this section may have been updated after the patient was seen, as this information can be updated by other users. Medical History Anxiety and depression Back Pain Cervical high risk human papillomavirus (HPV) DNA test positive Cervical intraepithelial neoplasia (ISABEL) History of gastroesophageal reflux (GERD) Hyperlipidemia Urinary tract infection Surgical History No significant past surgical history Family History Other No significant family history Social History Smoking Status: Current every day smoker tobacco type: cigarettes packs per day: 1 second hand exposure: No alcohol intake: current substance use type: denies use current occupational status: unemployed Travel in the last 8 weeks: None household members: family housing: house caffeine: No ROS Obtained: Yes All systems reviewed & no additional complaints except as documented Constitutional Constitutional: Reports system reviewed and no additional complaints, except as documented, Denies chills and Denies fever(s) Eyes Eyes: Denies eye discharge ENT Ears, Nose, Mouth, and Throat: Denies dysphagia, Denies sore throat and Denies throat swelling Cardiovascular Cardiovascular: Denies chest pain and Denies dyspnea Respiratory Respiratory: Denies chest congestion, Denies cough and Denies dyspnea Gastrointestinal Gastrointestingal: Denies abdominal pain, constipation, diarrhea, dysphagia, nausea or vomiting Genitourinary Female Genitourinary: Reports as per HPI, Reports dysuria, Reports sexual dysfunction, Reports urinary frequency, Denies urinary incontinence and Reports urinary hesitancy Musculoskeletal Musculoskeletal: Denies arthralgias and Reports back pain Integumentary/Breasts Skin/Breast: Denies rash Neurologic Neurologic: Denies paresthesias Allergic/Immunologic Allergic/Immunologic: Denies throat swelling Physical Exam General General appearance: alert and in no apparent distress Head Head exam: atraumatic and normocephalic Eye Eye exam: Present normal appearance, PERRL and EOMI ENT ENT exam: Present normal exam, mucous membranes mois
[2022-12-18 13:56] LABS: Apearance,Urine Cloudy (Clear); Color,Urine Dark Yellow (Yellow); PH,Urine 5.5 (5.0-8.5); Protein,Urine 3+ (Negative)
[2022-12-18 13:57] LABS: Bilirubin,Urine Negative (Negative); Blood, Urine 3+ (Negative); Glucose,Urine (UA) Negative (Negative); Ketones,Urine Negative (Negative); UTC Leukocyte Esterase,Urine Negative (Negative); UTC Nitrate,Urine Negative (Negative); Urobilinogen,Urine 0.2 EU/dl (0.2)
[2022-12-18 13:58] VITALS: BP 122/82; PULSE 69; RESP 16; TEMP 36.6; O2SAT 98; BMI 34.0
[2022-12-18 14:22] VITALS: BP 122/82; PULSE 69; RESP 16; TEMP 36.6; O2SAT 98
== END 2022-12-18 14:24 | disposition home or self-care (01) ==
PROVIDERS: Emergency Provider Nurse Practitioner Family; PCP Physician Assistant
DX: N39.0 Urinary tract infection, site not specified (principal); J01.90 Acute sinusitis, unspecified; F17.210 Nicotine dependence, cigarettes, uncomplicated; E78.5 Hyperlipidemia, unspecified; F41.9 Anxiety disorder, unspecified; F32.9 Major depressive disorder, single episode, unspecified
CPT/HCPCS: 81003; 87086; 99212; 99214; G0463